=== PATIENT | female | born 1975 | race Caucasian/White ===

== ENCOUNTER 2020-11-02 21:20 | Emergency (ER) | payer OTHER, SELFPAY ==
[2020-11-02 21:22] VITALS: BP 140/92; PULSE 106; O2SAT 99
== END 2020-11-03 01:29 | disposition left against medical advice (07) ==
PROVIDERS: Emergency Provider Emergency Medicine
DX: R60.0 Localized edema (principal)

== ENCOUNTER 2020-12-17 22:47 | Emergency (ER) | payer OTHER, SELFPAY ==
[2020-12-17 22:49] VITALS: BMI 62.4
[2020-12-17 22:54] VITALS: BP 143/56; PULSE 110; RESP 18; TEMP 36.9; O2SAT 100
--- NOTE | 2020-12-17 23:34 | ED_ITS ---
HPI - General Adult General Chief complaint: General Medical Stated complaint: Edema,pain Time Seen by Provider: 12/17/20 23:17 History of Present Illness HPI narrative: Patient is a 45-year-old female presented today having leg swelling that is been ongoing for about a week. Patient claims that she is normally on Lasix. She is out of her medication. Her doctors would not refill her medication without knowing her kidney function. Patient denies any history of congestive heart failure. No history of liver problems. Patient is from home. No fever no chills no chest pain or shortness of breath no dizziness no nausea no vomitin. Patient also complaining of a rash over her right axilla that is draining pus. She had a history of abscesses in the past. Denies any chest pain. Related Data Previous Rx's Medication Instructions Recorded doxycycline hyclate 100 mg PO BID 7 Days #14 cap 12/18/20 furosemide [Lasix] 10 mg PO QAM #14 tab 12/18/20 Allergies Allergy/AdvReac Type Severity Reaction Status Date / Time naproxen [NAPROXEN] Allergy Intermediate HIVES Unverified 03/25/20 15:03 tramadol [From ULTRAM] Allergy Intermediate HIVES Unverified 03/25/20 15:03 Review of Systems Review of Systems: Constitutional: No Weight loss, No Fever, No Chills, No Night Sweats, No Fatigue, No Malaise ENT/Mouth: No Hearing loss, No Ear Pain, No Nasal Congestion, No Sinus Pain, No Hoarseness, No sore throat, No Rhinorrhea, No Swallowing Difficulty Eyes: No Eye Pain, No Swelling, No Redness, No Foreign Body, No Discharge, No Vision Changes Cardiovascular: No Chest Pain, No SOB, No Dyspnea on Exertion, No Orthopnea, positive Edema, No Palpitations Respiratory: No Cough, No Sputum, No Wheezing, No Smoke Exposure, No Dyspnea Gastrointestinal: No Nausea, No Vomiting, No Diarrhea, No Constipation, No abdominal Pain, No Hematochezia, No Melena Genitourinary: no irregular bleeding, No Dysuria, No Urinary Frequency, No Hematuria, No Urinary Incontinence, No Urgency, No Flank Pain, No Urinary Flow Changes, No Hesitancy Musculoskeletal: No joint pain, No Myalgias, No Joint Swelling Skin: No Skin Lesions, positive lesion over the right axilla Neuro: No Weakness, No Numbness, No Paresthesias, No Loss of Consciousness, No Dizziness, No Headache Psych: No Anxiety/Panic, No Depression, No SI/HI/AH/VH, No Social Issues, Heme/Lymph: No Bruising, No Bleeding,No Lymphadenopathy Endocrine: No Polyuria, No Polydipsia, No Temperature Intolerance [facility] Past Medical History Medical History (Updated 12/18/20 @ 01:13 by China Bragg MD) Diabetes Edema Social History Social History Patient Tobacco Use Status: Current everyday Tobacco user Smoked in Last 30 Days: Yes Use of substances other than those prescribed or required for medical reasons: Yes Substance Use Type: Former Substance User Advance Directives: No Patient : No Physical Exam Vital Signs: Vital Signs: Last Vital Signs Temp 98.5 F 12/17/20 22:54 Pulse 110 H 12/17/20 22:54 Resp 18 12/17/20 22:54 BP 143/56 H 12/17/20 22:54 Pulse Ox 100 12/17/20 22:54 Body Mass Index 62.4 Appearance: Alert. Oriented X3. No acute distress. Eyes: Pupils equal, round and reactive to light. ENT: Pharynx normal. Neck: Normal inspection. Neck supple. No lymph nodes noted. No crepitus CVS: Normal heart rate and rhythm. Pulses normal. Normal S1 and S2 Respiratory: No respiratory distress. Breath sounds normal. No Wheezing. No rales Abdomen: Soft and nontender. No rigidity. No distention. good BS x4 Skin: Skin warm and dry. Normal skin color. Normal skin turgor. Have positive area of induration over the right axilla. That is draining of purulent material. It is approximately 2 cm x 2 cm in size. It is not fluctuant to touch. Extremities: 2+ pitting edema to the lower extremity. Neurovascular intact to all extremities. No Lacerations. No Rash Neuro: Oriented X 3. No motor deficit. No sensory deficit. Moving all extermities. No slurred speech Medical Decision Making MDM Narrative Medical decision making narrative: Will get labs to check for congestive heart failure. Baseline EKG ordered. We will go ahead and give Lasix if labs okay. In addition patient has an abscess that is already draining. There is no fluctuance is palpable over the right axilla. Will start patient on dox ycycline. Close follow-up on an outpatient basis. Patient's BNP is normal. Electrolytes normal. Positive area of an old abscess is draining. Lots of pus was expressed. There is no fluctuance in that area over the axilla at this point. Will go ahead and give some antibiotic. Will give doxycycline. Currently in stable condition. Lab Data Result diagrams: 12/17/20 23:53 12/17/20 23:53 Labs: Lab Results 12/17/20 12/17/20 12/17/20 Range/Units 23:53 23:53 23:53 WBC 12.3 H (4.8-10.8) X10*3/uL RBC 4.73 (4.20-5.50) X10*6/uL Hgb 13.1 (12.0-16.0) g/dl Hct 40.6 (37-47) % MCV 85.8 (80-98) fL MCH 27.7 (27.0-33.0) pg MCHC 32.3 (31.0-35.0) g/dl RDW 16.2 H (11.0-16.0) % Plt Count 343 (160-400) X10*3/uL MPV 8.6 L (9.4-12.3) fL Immature Gran % (Auto) 0.7 H (0.0-0.4) % Neut % (Auto) 77.6 H (45-73) % Lymph % (Auto) 17.7 L (20-40) % [place] % (Auto) 3.1 (2-11) % Eos % (Auto) 0.7 (0-4) % Baso % (Auto) 0.2 (0-2) % Lymph # (Auto) 2.2 (1.2-4.9) X10*3/uL [place] # (Auto) 0.4 (0.1-1.2) X10*3/uL Eos # (Auto) 0.1 (0.0-0.4) X10*3/uL Baso # (Auto) 0.0 (0.0-0.2) X10*3/uL Abs Immat Gran (auto) 0.08 H (0.00-0.03) X10*3/uL Absolute Neuts (auto) 9.5 H (2.0-8.3) X10*3/uL Absolute Nucleated RBC 0.000 (0.0-0.012) X10*3/uL Nucleated RBC % (auto) 0.0 (0.0-0.2) /100WBC Sodium 137 (135-145) mmol/L Potassium 4.4 (3.3-5.1) mmol/L Chloride 103 (96-108) mmol/L Carbon Dioxide 25 (22-29) mmol/L Anion Gap 13 (12-20) BUN 11 (9-16) mg/dL Creatinine 0.71 (0.5-1.4) mg/dL Estim Creat Clear Calc 137.6 Estimated GFR > 60 Random Glucose 246 H (60-115) mg/dL Calcium 9.2 (8.4-10.2) mg/dL Total Bilirubin 0.2 (0.0-1.0) mg/dL Direct Bilirubin < 0.2 (0.0-0.5) mg/dL AST 18 (5-31) U/L ALT 30 (0-31) U/L Alkaline Phosphatase 138 H (39-117) U/L B-Natriuretic Peptide 12 (<100) pg/mL Total Protein 6.5 (6.5-8.0) g/dL Albumin 3.7 (3.5-5.0) g/dL Discharge Plan Discharge Clinical Impression: Abscess, Leg edema Patient Disposition: Home, Self-Care Instructions: Leg Edema (ED), Abscess (ED) Prescriptions: New furosemide [Lasix] 20 mg tablet 10 mg PO QAM Qty: 14 RF: 0 doxycycline hyclate 100 mg capsule 100 mg PO BID 7 Days Qty: 14 RF: 0 Referrals: Olena Dangelo MD [Primary Care Provider] - 2 days
--- NOTE | 2020-12-17 23:36 | ECG_ITS ---
Test Reason : MED CLEAR Blood Pressure : / mmHG Vent. Rate : 104 BPM Atrial Rate : 104 BPM P-R Int : 168 ms QRS Dur : 086 ms QT Int : 344 ms P-R-T Axes : 049 069 047 degrees QTc Int : 452 ms Sinus tachycardia Possible Left atrial enlargement Borderline ECG When compared with ECG of 16-NOV-2019 18:53, No significant change was found Referred By: China Bragg Electronically Signed By:DIANA DELCID MD
[2020-12-18 00:01] LABS: Basophils Percent Auto 0.2 % (0-2); Eosinophils Absolute Auto 0.1 X10*3/uL (0.0-0.4); Eosinophils Percent Auto 0.7 % (0-4); Hematocrit 40.6 % (37-47); Hemoglobin 13.1 g/dl (12.0-16.0); Imm Gran Abs Auto 0.08 X10*3/uL (0.00-0.03); Imm Gran Pct Auto 0.7 % (0.0-0.4); Lymphocytes Absolute Auto 2.2 X10*3/uL (1.2-4.9); Lymphocytes Percent Auto 17.7 % (20-40); MANUAL DIFF FLAG NO; Mean Corpuscular HGB Conc 32.3 g/dl (31.0-35.0); Mean Corpuscular Hemoglobin 27.7 pg (27.0-33.0); Mean Corpuscular Volume 85.8 fL (80-98); Mean Platelet Volume 8.6 fL (9.4-12.3); Monocytes Absolute Auto 0.4 X10*3/uL (0.1-1.2); Monocytes Percent Auto 3.1 % (2-11); Neutrophils Absolute Auto 9.5 X10*3/uL (2.0-8.3); Neutrophils Percent Auto 77.6 % (45-73); Platelet Count 343 X10*3/uL (160-400); Red Blood Count 4.73 X10*6/uL (4.20-5.50); Red Cell Distribution Width 16.2 % (11.0-16.0); White Blood Count 12.3 X10*3/uL (4.8-10.8)
[2020-12-18 00:30] LABS: Alanine Aminotransferase 30 U/L (0-31); Albumin Level 3.7 g/dL (3.5-5.0); Alkaline Phosphatase 138 U/L (39-117); Anion Gap 13 (12-20); Aspartate Amino Transferase 18 U/L (5-31); Bilirubin Direct < 0.2 mg/dL (0.0-0.5); Bilirubin Total 0.2 mg/dL (0.0-1.0); Blood Urea Nitrogen 11 mg/dL (9-16); Calcium 9.2 mg/dL (8.4-10.2); Carbon Dioxide 25 mmol/L (22-29); Chloride 103 mmol/L (96-108); Creatinine Clr Calc Pharmacy 137.6; Estimated Glomerular Filt Rate > 60; Glucose Random 246 mg/dL (60-115); Potassium 4.4 mmol/L (3.3-5.1); Sodium 137 mmol/L (135-145); Total Protein 6.5 g/dL (6.5-8.0)
[2020-12-18 01:02] LABS: B Type Natriuretic Peptide 12 pg/mL (<100)
--- NOTE | 2020-12-18 01:23 | ED.GENADULT ---
HPI - General Adult General Chief complaint: General Medical Stated complaint: Edema,pain Time Seen by Provider: 12/17/20 23:17 Related Data Previous Rx's Medication Instructions Recorded doxycycline hyclate 100 mg PO BID 7 Days #14 cap 12/18/20 furosemide [Lasix] 10 mg PO QAM #14 tab 12/18/20 Allergies Allergy/AdvReac Type Severity Reaction Status Date / Time naproxen [NAPROXEN] Allergy Intermediate HIVES Unverified 03/25/20 15:03 tramadol [From ULTRAM] Allergy Intermediate HIVES Unverified 03/25/20 15:03 [facility] Past Medical History Medical History (Updated 12/18/20 @ 01:13 by China Bragg MD) Diabetes Edema Social History Social History Patient Tobacco Use Status: Current everyday Tobacco user Smoked in Last 30 Days: Yes Use of substances other than those prescribed or required for medical reasons: Yes Substance Use Type: Former Substance User Advance Directives: No Patient : No Physical Exam Vital Signs: Vital Signs: Last Vital Signs Temp 98.5 F 12/17/20 22:54 Pulse 110 H 12/17/20 22:54 Resp 18 12/17/20 22:54 BP 143/56 H 12/17/20 22:54 Pulse Ox 100 12/17/20 22:54 Body Mass Index 62.4 Medical Decision Making Lab Data Result diagrams: 12/17/20 23:53 12/17/20 23:53 Labs: Lab Results 12/17/20 12/17/20 12/17/20 Range/Units 23:53 23:53 23:53 WBC 12.3 H (4.8-10.8) X10*3/uL RBC 4.73 (4.20-5.50) X10*6/uL Hgb 13.1 (12.0-16.0) g/dl Hct 40.6 (37-47) % MCV 85.8 (80-98) fL MCH 27.7 (27.0-33.0) pg MCHC 32.3 (31.0-35.0) g/dl RDW 16.2 H (11.0-16.0) % Plt Count 343 (160-400) X10*3/uL MPV 8.6 L (9.4-12.3) fL Immature Gran % (Auto) 0.7 H (0.0-0.4) % Neut % (Auto) 77.6 H (45-73) % Lymph % (Auto) 17.7 L (20-40) % [place] % (Auto) 3.1 (2-11) % Eos % (Auto) 0.7 (0-4) % Baso % (Auto) 0.2 (0-2) % Lymph # (Auto) 2.2 (1.2-4.9) X10*3/uL [place] # (Auto) 0.4 (0.1-1.2) X10*3/uL Eos # (Auto) 0.1 (0.0-0.4) X10*3/uL Baso # (Auto) 0.0 (0.0-0.2) X10*3/uL Abs Immat Gran (auto) 0.08 H (0.00-0.03) X10*3/uL Absolute Neuts (auto) 9.5 H (2.0-8.3) X10*3/uL Absolute Nucleated RBC 0.000 (0.0-0.012) X10*3/uL Nucleated RBC % (auto) 0.0 (0.0-0.2) /100WBC Sodium 137 (135-145) mmol/L Potassium 4.4 (3.3-5.1) mmol/L Chloride 103 (96-108) mmol/L Carbon Dioxide 25 (22-29) mmol/L Anion Gap 13 (12-20) BUN 11 (9-16) mg/dL Creatinine 0.71 (0.5-1.4) mg/dL Estim Creat Clear Calc 137.6 Estimated GFR > 60 Random Glucose 246 H (60-115) mg/dL Calcium 9.2 (8.4-10.2) mg/dL Total Bilirubin 0.2 (0.0-1.0) mg/dL Direct Bilirubin < 0.2 (0.0-0.5) mg/dL AST 18 (5-31) U/L ALT 30 (0-31) U/L Alkaline Phosphatase 138 H (39-117) U/L B-Natriuretic Peptide 12 (<100) pg/mL Total Protein 6.5 (6.5-8.0) g/dL Albumin 3.7 (3.5-5.0) g/dL ECG Data Interpretation: Sinus heart rate is 100 [place] QRS QT within normal limits. No ST segment elevation noted. No change from previous Discharge Plan Discharge Clinical Impression: Abscess, Leg edema Patient Disposition: Home, Self-Care Instructions: Leg Edema (ED), Abscess (ED) Prescriptions: New furosemide [Lasix] 20 mg tablet 10 mg PO QAM Qty: 14 RF: 0 doxycycline hyclate 100 mg capsule 100 mg PO BID 7 Days Qty: 14 RF: 0 Referrals: Olena Dangelo MD [Primary Care Provider] - 2 days
[2020-12-18 01:46] VITALS: BP 137/62; PULSE 92; RESP 16; TEMP 36.9; O2SAT 99
== END 2020-12-18 01:47 | disposition home or self-care (01) ==
PROVIDERS: Emergency Provider Emergency Medicine Emergency Medical Services; PCP Internal Medicine
DX: R60.0 Localized edema (principal); L02.91 Cutaneous abscess, unspecified; E11.9 Type 2 diabetes mellitus without complications; F17.210 Nicotine dependence, cigarettes, uncomplicated
CPT/HCPCS: 36415; 80048; 80076; 83880; 85025; 93005; 99283; 99284

== ENCOUNTER 2021-01-03 21:48 | Emergency (ER) | payer OTHER, SELFPAY ==
[2021-01-03 21:50] VITALS: BP 139/76; PULSE 111; O2SAT 98
[2021-01-03 21:54] VITALS: BP 159/82; PULSE 99; RESP 18; TEMP 36.8; O2SAT 95; BMI 58.7
[2021-01-03 22:36] LABS: MANUAL DIFF FLAG NO
[2021-01-03 22:38] LABS: Basophils Percent Auto 0.2 % (0-2); Eosinophils Absolute Auto 0.1 X10*3/uL (0.0-0.4); Eosinophils Percent Auto 0.9 % (0-4); Hematocrit 41.4 % (37-47); Hemoglobin 13.2 g/dl (12.0-16.0); Imm Gran Abs Auto 0.07 X10*3/uL (0.00-0.03); Imm Gran Pct Auto 0.6 % (0.0-0.4); Lymphocytes Absolute Auto 2.2 X10*3/uL (1.2-4.9); Mean Corpuscular HGB Conc 31.9 g/dl (31.0-35.0); Mean Corpuscular Hemoglobin 27.2 pg (27.0-33.0); Mean Corpuscular Volume 85.2 fL (80-98); Mean Platelet Volume 9.3 fL (9.4-12.3); Monocytes Absolute Auto 0.4 X10*3/uL (0.1-1.2); Monocytes Percent Auto 3.1 % (2-11); Neutrophils Absolute Auto 9.3 X10*3/uL (2.0-8.3); Neutrophils Percent Auto 77.2 % (45-73); Platelet Count 332 X10*3/uL (160-400); Red Blood Count 4.86 X10*6/uL (4.20-5.50); Red Cell Distribution Width 15.9 % (11.0-16.0); White Blood Count 12.1 X10*3/uL (4.8-10.8)
[2021-01-03 22:59] LABS: Anion Gap 12 (12-20); Blood Urea Nitrogen 9 mg/dL (9-16); Carbon Dioxide 25 mmol/L (22-29); Chloride 104 mmol/L (96-108); Creatinine Clr Calc Pharmacy 176.8; Estimated Glomerular Filt Rate > 60; Glucose Random 221 mg/dL (60-115); Sodium 137 mmol/L (135-145)
--- NOTE | 2021-01-03 23:53 | ED_ITS ---
HPI - General Adult General Chief complaint: General Medical Stated complaint: leg swelling Time Seen by Provider: 01/03/21 23:43 History of Present Illness HPI narrative: Patient is a 45-year-old female presents today with having bilateral lower extremity edema. no chest pain or diaphoresis. No fever no chills. Patient normally on Lasix 20 mg. Patient ran out of her pills the last 4 days. The edema has gotten worse. There is no fever no chills. No shortness of breath. No history of blood clots. Patient not on blood thinners. No history being on control pills. No history of trauma. Related Data Previous Rx's Medication Instructions Recorded doxycycline hyclate 100 mg PO BID 7 Days #14 cap 12/18/20 furosemide [Lasix] 10 mg PO QAM #14 tab 12/18/20 furosemide [Lasix] 20 mg PO QAM 14 Days #14 tab 01/04/21 Allergies Allergy/AdvReac Type Severity Reaction Status Date / Time naproxen [NAPROXEN] Allergy Intermediate HIVES Unverified 03/25/20 15:03 tramadol [From ULTRAM] Allergy Intermediate HIVES Unverified 03/25/20 15:03 Review of Systems Review of Systems: Constitutional: No Weight loss, No Fever, No Chills, No Night Sweats, No Fatigue, No Malaise ENT/Mouth: No Hearing loss, No Ear Pain, No Nasal Congestion, No Sinus Pain, No Hoarseness, No sore throat, No Rhinorrhea, No Swallowing Difficulty Eyes: No Eye Pain, No Swelling, No Redness, No Foreign Body, No Discharge, No Vision Changes Cardiovascular: No Chest Pain, No SOB, No Dyspnea on Exertion, No Orthopnea, No Edema, No Palpitations Respiratory: No Cough, No Sputum, No Wheezing, No Smoke Exposure, No Dyspnea Gastrointestinal: No Nausea, No Vomiting, No Diarrhea, No Constipation, No abdominal Pain, No Hematochezia, No Melena Genitourinary: no irregular bleeding, No Dysuria, No Urinary Frequency, No Hematuria, No Urinary Incontinence, No Urgency, No Flank Pain, No Urinary Flow Changes, No Hesitancy Musculoskeletal: Positive lower extremity swelling, getting worse Skin: No Skin Lesions, No rash Neuro: No Weakness, No Numbness, No Paresthesias, No Loss of Consciousness, No Dizziness, No Headache Psych: No Anxiety/Panic, No Depression, No SI/HI/AH/VH, No Social Issues, Heme/Lymph: No Bruising, No Bleeding,No Lymphadenopathy Endocrine: No Polyuria, No Polydipsia, No Temperature Intolerance [facility] Past Medical History Attestation statement: The following information was validated with the patient. Medical History Asthma Diabetes Edema Panic attacks Social History Social History Patient Tobacco Use Status: Current everyday Tobacco user Substance Use Type: Former Substance User Advance Directives: No Advance Directives Information Provided: No Patient : No Physical Exam Vital Signs: Vital Signs: Last Vital Signs Temp 98.3 F 01/03/21 21:54 Pulse 99 01/03/21 21:54 Resp 18 01/03/21 21:54 BP 159/82 H 01/03/21 21:54 Pulse Ox 95 01/03/21 21:54 Body Mass Index 58.7 Appearance: Alert. Oriented X3. No acute distress. Eyes: Pupils equal, round and reactive to light. ENT: Pharynx normal. Neck: Normal inspection. Neck supple. No lymph nodes noted. No crepitus CVS: Normal heart rate and rhythm. Pulses normal. Normal S1 and S2 Respiratory: No respiratory distress. Breath sounds normal. No Wheezing. No rales Abdomen: Soft and nontender. No rigidity. No distention. good BS x4 Skin: Skin warm and dry. Normal skin color. Normal skin turgor. Extremities: 2+ pitting edema bilaterally. Neurovascular intact to all extremities. No Lacerations. No Rash Neuro: Oriented X 3. No motor deficit. No sensory deficit. Moving all extermities. No slurred speech Medical Decision Making MDM Narrative Medical decision making narrative: Patient well-appearing no distress. Positive bilateral lower extremity edema. BNP was normal. No evidence for joe estive heart failure. Will start patient back on Lasix. Likely the cause of patient's leg swelling. In stable condition with discharge home. Lab Data Result diagrams: 01/03/21 22:11 01/03/21 22:11 Labs: Lab Results 01/03/21 01/03/21 01/03/21 Range/Units 22:11 22:11 22:11 WBC 12.1 H (4.8-10.8) X10*3/uL RBC 4.86 (4.20-5.50) X10*6/uL Hgb 13.2 (12.0-16.0) g/dl Hct 41.4 (37-47) % MCV 85.2 (80-98) fL MCH 27.2 (27.0-33.0) pg MCHC 31.9 (31.0-35.0) g/dl RDW 15.9 (11.0-16.0) % Plt Count 332 (160-400) X10*3/uL MPV 9.3 L (9.4-12.3) fL Immature Gran % (Auto) 0.6 H (0.0-0.4) % Neut % (Auto) 77.2 H (45-73) % Lymph % (Auto) 18.0 L (20-40) % [place] % (Auto) 3.1 (2-11) % Eos % (Auto) 0.9 (0-4) % Baso % (Auto) 0.2 (0-2) % Lymph # (Auto) 2.2 (1.2-4.9) X10*3/uL [place] # (Auto) 0.4 (0.1-1.2) X10*3/uL Eos # (Auto) 0.1 (0.0-0.4) X10*3/uL Baso # (Auto) 0.0 (0.0-0.2) X10*3/uL Abs Immat Gran (auto) 0.07 H (0.00-0.03) X10*3/uL Absolute Neuts (auto) 9.3 H (2.0-8.3) X10*3/uL Absolute Nucleated RBC 0.000 (0.0-0.012) X10*3/uL Nucleated RBC % (auto) 0.0 (0.0-0.2) /100WBC Sodium 137 (135-145) mmol/L Potassium 4.0 (3.3-5.1) mmol/L Chloride 104 (96-108) mmol/L Carbon Dioxide 25 (22-29) mmol/L Anion Gap 12 (12-20) BUN 9 (9-16) mg/dL Creatinine 0.68 (0.5-1.4) mg/dL Estim Creat Clear Calc 176.8 Estimated GFR > 60 Random Glucose 221 H (60-115) mg/dL Calcium 9.0 (8.4-10.2) mg/dL Troponin I High Sens < 3.5 (<3.5-17.0) ng/L B-Natriuretic Peptide 15 (<100) pg/mL Discharge Plan Discharge Clinical Impression: Edema Patient Disposition: Home, Self-Care Instructions: Edema (ED) Prescriptions: New furosemide [Lasix] 20 mg tablet 20 mg PO QAM 14 Days Qty: 14 RF: 0 No Action furosemide [Lasix] 20 mg tablet 10 mg PO QAM Qty: 14 RF: 0 doxycycline hyclate 100 mg capsule 100 mg PO BID 7 Days Qty: 14 RF: 0 Referrals: Physician,Unknown [Primary Care Provider] - 2 days
[2021-01-04 00:27] LABS: B Type Natriuretic Peptide 15 pg/mL (<100); Troponin-I High Sensitivity < 3.5 ng/L (<3.5-17.0)
[2021-01-04] MEDS: Furosemide 20 MG TABLET PO (00:50)
== END 2021-01-04 00:50 | disposition home or self-care (01) ==
PROVIDERS: Emergency Provider Emergency Medicine Emergency Medical Services
DX: R60.0 Localized edema (principal); E11.9 Type 2 diabetes mellitus without complications; J45.909 Unspecified asthma, uncomplicated
CPT/HCPCS: 36415; 80048; 83880; 84484; 85025; 99283

== ENCOUNTER 2021-02-18 12:54 | Emergency (ER) | payer OTHER, SELFPAY ==
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
[2021-02-18 13:22] VITALS: BP 111/65; PULSE 98; RESP 20; TEMP 36.4; O2SAT 95; BMI 52.0
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
[2021-02-18] MEDS: Lidocaine 4 % Patch ADH..PATCH 2 PATCH TRANSDERMA (14:31)
[2021-02-18] MEDS: Cyclobenzaprine HCl 10 MG TABLET PO (14:31)
[2021-02-18] MEDS: Butalb/Acetamin/Caff 50/325/40 TABLET 1 TAB PO (15:04)
== END 2021-02-18 15:10 | disposition home or self-care (01) ==
PROVIDERS: Emergency Provider Emergency Medicine; PCP Internal Medicine
DX: S39.012A Strain of muscle, fascia and tendon of lower back, initial encounter (principal); S09.90XA Unspecified injury of head, initial encounter; S16.1XXA Strain of muscle, fascia and tendon at neck level, initial encounter; S13.4XXA Sprain of ligaments of cervical spine, initial encounter; R51.9 Headache, unspecified; F17.200 Nicotine dependence, unspecified, uncomplicated; Z71.6 Tobacco abuse counseling; Z79.899 Other long term (current) drug therapy; V43.62XA Car passenger injured in collision with other type car in traffic accident, initial encounter; Y93.9 Activity, unspecified; Y92.410 Unspecified street and highway as the place of occurrence of the external cause; Y99.9 Unspecified external cause status
CPT/HCPCS: 70450; 72100; 72125; 99284

== ENCOUNTER 2021-04-19 09:14 | Emergency (ER) | payer OTHER, SELFPAY ==
[2021-04-19 09:24] VITALS: BP 150/78; PULSE 118; RESP 20; TEMP 37.8; O2SAT 97; BMI 50.8
[2021-04-19] MEDS: Buprenorphine/Naloxone 8/2 mg FILM 2 FILM SUBLINGUAL (10:53)
[2021-04-19] MEDS: cephALEXin 500 MG CAPSULE PO (10:53)
[2021-04-19] MEDS: Lidocaine HCl 1 % MPF 5 ML VIAL SUBCUT (10:53)
--- NOTE | 2021-04-19 11:31 | ED_ITS ---
HPI - Skin/Abscess/Foreign Bdy General Chief complaint: Wound/Laceration Stated complaint: multiple abscess Time Seen by Provider: 04/19/21 09:42 Source: patient Mode of arrival: ambulatory Limitations: no limitations History of Present Illness complaint: abscess/boil Onset (ago): day(s) (Few days worse today) Location: genitals (Left groin/labia) Severity: severe Severity scale (1-10): >10 Quality: aching Pain Consistency: constant Relieving factors: none Exacerbating factors: palpation and movement Context: none Associated symptoms: denies other symptoms Treatments prior to arrival: none and attempted to drain pus at home Related Data Previous Rx's Medication Instructions Recorded doxycycline hyclate 100 mg capsule 100 mg PO BID 7 Days #14 cap 12/18/20 furosemide 20 mg tablet (Lasix) 10 mg PO QAM #14 tab 12/18/20 furosemide 20 mg tablet (Lasix) 20 mg PO QAM 14 Days #14 tab 01/04/21 shxogxwhhv-zlfrohtllsype-paidgwzs 1 tab PO Q6H PRN #20 tab 02/18/21 50 mg-325 mg-40 mg tablet lidocaine 4 % topical patch 1 patch TOPICAL DAILY PRN #10 ea 02/18/21 methocarbamol 750 mg tablet 750 mg PO BID PRN #20 tab 02/18/21 acetaminophen 500 mg tablet 1,000 mg PO QID PRN #14 tab 04/19/21 (Tylenol Extra Strength) cephalexin 500 mg capsule 500 mg PO Q6H 10 Days #40 cap 04/19/21 doxycycline monohydrate 100 mg 100 mg PO BID 10 Days #20 cap 04/19/21 capsule Allergies Allergy/AdvReac Type Severity Reaction Status Date / Time naproxen [NAPROXEN] Allergy Intermediate HIVES Verified 04/19/21 09:28 tramadol [From ULTRAM] Allergy Intermediate HIVES Verified 04/19/21 09:28 Review of Systems Review of Systems: Constitutional : No Fever, No Chills, Cardiovascular : No Chest Pain, No SOB Respiratory : No Dyspnea Gastrointestinal : No abdominal pain Musculoskeletal : No Joint Swelling Skin : positive abscess, no skin laceration, No Foreign bodies, No rash, No surrounding erythema Neuro : No Weakness, No Numbness/tingling Psych : No SI/HI/thoughts of self injury Yes all other systems are reviewed and are negative [facility] Past Medical History Attestation statement: The following information was validated with the patient. Medical History Asthma Diabetes Edema Panic attacks Social History Social History Patient Tobacco Use Status: Current everyday Tobacco user Substance Use Type: Former Substance User Advance Directives: No Advance Directives Information Provided: Yes Physical Exam Vital Signs: Vital Signs: Last Vital Signs Temp 100.0 F 04/19/21 09:24 Pulse 118 H 04/19/21 09:24 Resp 20 04/19/21 09:24 BP 150/78 H 04/19/21 09:24 Pulse Ox 97 04/19/21 09:24 Body Mass Index 50.8 vital signs have been reviewed as normal and appeared to be correct. Blood pressure normal Heart rate normal. Respiration rate normal. Temperature normal. Oxygen saturation normal. Appearance: Alert. Oriented X3. No acute distress. Head: Normal external exam. Normocephalic. Atraumatic. Eyes: PERRLA. EOMI. Conjunctiva and sclera normal. Eyelids normal. ENT: Pharynx normal. Uvula midline. Moist mucous membranes. Neck: Normal inspection. Neck supple. FROM. CVS: Normal heart rate and rhythm. Respiratory: No respiratory distress. Painless inspiration. Skin: To left groin/labia patient has a moderate size fluctuant abscess no purulent drainage noted or foreign bodies. No induration noted. The rest of the Skin is warm and dry. Normal skin color. Normal skin turgor. No additional rashes/lesions/lacerations noted. Extremities: No lower extremity edema. Extremities exhibit normal range of motion. Extremities nontender. Neuro: Oriented X 3. No motor deficit. No sensory deficit. Reflexes normal. Normal steady gait. No focal neuro deficits noted. Vascular: + radial pulses/+ 2 distal pedal pulses/+2 dorsalis pedis b/l. Normal cap refill. No cyanosis noted to upper extremity nails and lower extremity toes nails. Course Course Course Narrative: Patient now status post I&D of left labia abscess. Patient tolerated procedure well. No complications. I also gave the patient her Suboxone dose due to she missed her appointment this morning due to she was here. Also started her on doxycycline and Keflex along with instructions return if any new or worsening symptoms follow-up with primary care provider. Patient understands agrees with this plan. MDM - Skin/Abscess/Foreign Bdy Medical Records Attestation: I reviewed the patient's medical records. Procedures Abscess I/D Site: other (Labia) Side (if applicable): left Local Anesthetic: lidocaine 1% Amount of anesthesia used (mL): 5 Technique: incised with blade Amount of fluid expressed (mL): 5 Sent for culture/gram staining?: No Irrigation: Yes Packing used?: none Complications: other (No complications) Discharge Plan Discharge Clinical Impression: Abscess Patient Disposition: Home, Self-Care Instructions: Abscess Incision and Drainage (DC) Prescriptions: New acetaminophen [Tylenol Extra Strength] 500 mg tablet 1,000 mg PO QID PRN (Reason: fever or pain) Qty: 14 RF: 0 doxycycline monohydrate 100 mg capsule 100 mg PO BID 10 Days Qty: 20 RF: 0 cephalexin 500 mg capsule 500 mg PO Q6H 10 Days Qty: 40 RF: 0 No Action furosemide [Lasix] 20 mg tablet 10 mg PO QAM Qty: 14 RF: 0 doxycycline hyclate 100 mg capsule 100 mg PO BID 7 Days Qty: 14 RF: 0 furosemide [Lasix] 20 mg tablet 20 mg PO QAM 14 Days Qty: 14 RF: 0 lidocaine 4 % adhesive patch,medicated 1 patch topical DAILY PRN (Reason: pain) Qty: 10 RF: 0 rhpkiwdgtk-qqeoxtotqophl-xcem 50-325-40 mg tablet 1 tab PO Q6H PRN (Reason: pain) Qty: 20 RF: 0 methocarbamol 750 mg tablet 750 mg PO BID PRN (Reason: muscle spasm) Qty: 20 RF: 0 Referrals: Olena Dangelo MD [Primary Care Provider] - 2 days
== END 2021-04-19 11:47 | disposition home or self-care (01) ==
PROVIDERS: Emergency Provider Emergency Medicine; PCP Internal Medicine
DX: N76.4 Abscess of vulva (principal); F17.210 Nicotine dependence, cigarettes, uncomplicated; Z71.6 Tobacco abuse counseling; Z79.899 Other long term (current) drug therapy
CPT/HCPCS: 56405; 99283; 99284

== ENCOUNTER 2021-07-20 22:45 | Emergency (ER) | payer OTHER, SELFPAY ==
[2021-07-20 22:56] VITALS: BP 120/80; BP 141/80; PULSE 110; PULSE 99; RESP 18; TEMP 36; O2SAT 94; O2SAT 96; BMI 49.9
== END 2021-07-20 23:46 | disposition left against medical advice (07) ==
PROVIDERS: Emergency Provider Emergency Medicine; PCP Family Medicine
DX: R33.9 Retention of urine, unspecified (principal); R10.9 Unspecified abdominal pain; R60.0 Localized edema; E11.9 Type 2 diabetes mellitus without complications
CPT/HCPCS: 99281; 99282

== ENCOUNTER 2022-02-22 17:27 | Emergency (ER) | payer OTHER, SELFPAY ==
[2022-02-22 17:43] VITALS: BP 122/75; PULSE 93; O2SAT 95
[2022-02-22 18:00] VITALS: BP 145/90; PULSE 88; RESP 20; TEMP 36.7; O2SAT 98; BMI 45.7
== END 2022-02-22 19:15 | disposition left against medical advice (07) ==
PROVIDERS: Emergency Provider Emergency Medicine
DX: R51.9 Headache, unspecified (principal)
CPT/HCPCS: 99281

== ENCOUNTER 2022-03-06 15:53 | Emergency (ER) | payer OTHER, SELFPAY ==
--- NOTE | ~2022-03-06 | XR_ITS ---
EXAMINATION: PORTABLE CHEST 1 VIEW CLINICAL INFORMATION: Chest pain. COMPARISON: 11/16/2019. TECHNIQUE: Portable frontal view of the chest was obtained. FINDINGS: The lungs are hypoexpanded with basilar markings more likely due to atelectasis in this setting. Tiny effusions cannot be excluded. No overt edema or pneumothorax. Cardiac and mediastinal silhouettes are within normal limits for size for this technique. No acute bony abnormality seen. XR/XR chest 1V IMPRESSION: Hypoexpanded with basilar markings more likely due to atelectasis
--- NOTE | 2022-03-06 16:23 | ED.CHESTPAIN ---
HPI - Chest Pain General Chief Complaint: Chest Pain Stated Complaint: chest pain Source: patient and EMS Mode of arrival: EMS Limitations: no limitations History of Present Illness HPI narrative: 46-year-old female presents via EMS for chest pain that radiates from her back to her right shoulder. Was given 324 mg aspirin on transit. Patient states the pain started this morning, it woke her up. Worse on inspiration, and when she moves her arms. She does have some shortness of breath, and bilateral lower extremity edema per baseline and takes Lasix daily. She denies pain on inspiration, abdominal distention, dysuria, hematuria. MD complaint: chest pain Onset (ago): day(s) (1) Timing of current episode: constant Prior episodes: Yes Onset: during rest Pain location: substernal Pain radiation: right shoulder Severity: moderate Pain scale (0-10): 7 Quality: sharp Relieving factors: nothing Exacerbating factors: exertion, inspiration and palpation Associated symptoms: dyspnea Treatment prior to arrival: aspirin Risk Factors Coronary artery disease risk factors: diabetes and smoking history Related Data On Oral Contraceptives: No Previous Rx's Medication Instructions Recorded doxycycline hyclate 100 mg capsule 100 mg PO BID cough 7 days #14 caps 12/18/20 furosemide 20 mg tablet (Lasix) 10 mg PO QAM #14 tabs 12/18/20 furosemide 20 mg tablet (Lasix) 20 mg PO QAM edema 2 weeks #14 tabs 01/04/21 [id number]-tpbsegnfljiun-[id number] 1 tab PO Q6H PRN pain #20 tabs 02/18/21 50 mg-325 mg-40 mg tablet lidocaine 4 % topical patch 1 patch topical DAILY PRN pain #10 02/18/21 ea methocarbamol 750 mg tablet 750 mg PO BID PRN muscle spasm #20 02/18/21 tabs acetaminophen 500 mg tablet 1,000 mg PO QID PRN fever or pain 04/19/21 (Tylenol Extra Strength) #14 tabs cephalexin 500 mg capsule 500 mg PO Q6H 10 days #40 caps 04/19/21 doxycycline monohydrate 100 mg 100 mg PO BID 10 days #20 caps 04/19/21 capsule doxycycline monohydrate 100 mg 100 mg PO BID 10 days #20 caps 03/06/22 capsule Allergies Allergy/AdvReac Type Severity Reaction Status Date / Time naproxen [NAPROXEN] Allergy Intermediate HIVES Verified 04/19/21 09:28 tramadol [From ULTRAM] Allergy Intermediate HIVES Verified 04/19/21 09:28 Review of Systems Review of Systems: Constitutional: No Fever, No Chills ENT/Mouth: No Ear Pain, No Hoarseness, No sore throat Eyes: No Eye Pain, No Swelling, No Redness, No Foreign Body Cardiovascular: No Chest Pain, No SOB Respiratory: No Cough, No Dyspnea Gastrointestinal: No Nausea, No Vomiting, No Diarrhea, No abdominal Pain Genitourinary: No Dysuria, No Hematuria Musculoskeletal: positive chest wall and back pain, No Myalgias, No Joint Swelling Skin: No Skin lacerations, No rash Neuro: No Weakness, No Numbness, No Paresthesias, No Loss of Consciousness, No Dizziness, No Headache Psych: No Anxiety/Panic, No Depression Heme/Lymph: no easy bruising, no Lymphadenopathy Endocrine: No Polyuria, No Polydipsia Yes all other systems are reviewed and are negative [facility] Past Medical History Attestation statement: The following information was validated with the patient. Source: old records reviewed Medical History Asthma Diabetes Edema Panic attacks Social History Social History Patient Tobacco Use Status: Current everyday Tobacco user Use of substances other than those prescribed or required for medical reasons: No Substance Use Type: Former Substance User Advance Directives: No Advance Directives Information Provided: No Physical Exam Vital Signs: Vital Signs: Last Vital Signs Temp 98.4 F 03/06/22 18:00 Pulse 111 H 03/06/22 18:00 Resp 20 03/06/22 18:00 BP 105/60 03/06/22 18:00 Pulse Ox 95 03/06/22 18:00 O2 Del Method 03/06/22 18:00 BMI result Body Mass Index 45.4 Appearance: Alert. Oriented X3. Moderate distress. Eyes: Pupils equal, round and reactive to light. Sclera nonicteric. ENT: Pharynx normal. Moist mucous membranes. Neck: Normal inspection. Neck supple. CVS: Tachycardic heart rate and rhythm. Pulses normal. Respiratory: No respiratory distress. Breath sounds normal. Abdomen: Soft and nontender. Obese. Skin: Skin warm and dry. Normal skin color. Normal skin turgor. Extremities: +2 pitting lower extremity edema. Moves all extremities against resistance. Neuro: No motor deficit. No sensory deficit. Cranial nerves 2-12 intact. Course Course Course Narrative: 46-year-old female presents via EMS for chest pain that started this morning, is substernal radiates to her right shoulder. Was given aspirin 324 on transit. Stated the chest pain started this morning, woke her up, is not associated with diaphoresis, shortness breath, weakness or dizziness. She does take Suboxone and Adderall. Heart rate elevated however she did take few hours prior arrival EKG shows sinus tachycardia. 17:20 serum glucose 371, order for ketones and L of fluid at this time. White count is 14.3. 19:27 patient states to feel better, states that she is anxious and wants to leave. plan of care is to discharge patient to home, she would like to be treated for bronchitis with doxycycline. MDM - Chest Pain Differential Diagnosis Differential diagnosis: Likely fracture of rib, pneumothorax, unstable angina pectoris, atypical chest pain, st elevation myocardial infarction, costochondritis, chest pain and biliary colic Medical Records Data Attestation: I reviewed the patient's medical records. Lab Data Attestation: I reviewed the patient's lab results. Result diagrams: 03/06/22 16:54 03/06/22 16:54 Labs: Lab Results 03/06/22 03/06/22 03/06/22 Range/Units 16:36 16:54 16:54 WBC 14.3 H (4.8-10.8) X10*3/uL RBC 5.05 (4.20-5.50) X10*6/uL Hgb 13.7 (12.0-16.0) g/dl Hct 41.6 (37.0-47.0) % MCV 82.4 (80.0-98.0) fL MCH 27.1 (27.0-33.0) pg MCHC 32.9 (31.0-35.0) g/dl RDW 15.7 (11.0-16.0) % Plt Count 305 (160-400) X10*3/uL MPV 9.2 L (9.4-12.3) fL Immature Gran % (Auto) 0.6 H (0.0-0.4) % Neut % (Auto) 83.4 H (45-73) % Lymph % (Auto) 12.5 L (20-40) % Calvert % (Auto) 3.2 (2-11) % Eos % (Auto) 0.2 (0-4) % Baso % (Auto) 0.1 (0-2) % Lymph # (Auto) 1.8 (1.2-4.9) X10*3/uL Calvert # (Auto) 0.5 (0.1-1.2) X10*3/uL Eos # (Auto) 0.0 (0.0-0.4) X10*3/uL Baso # (Auto) 0.0 (0.0-0.2) X10*3/uL Abs Immat Gran (auto) 0.08 H (0.00-0.03) X10*3/uL Absolute Neuts (auto) 11.9 H (2.0-8.3) x10*3/uL Absolute Nucleated RBC 0.000 (0.0-0.012) X10*3/uL Nucleated RBC % (auto) 0.0 (0.0-0.2) /100WBC PT 11.6 (10.0-13.1) SEC INR 1.0 (0.9-1.1) APTT 32.2 (26.0-36.4) SEC VBG pH (7.32-7.43) VBG pCO2 mmHg VBG pO2 mmHg VBG HCO3 (22-26) mmol/L VBG O2 Saturation % VBG Base Excess mmol/L Sodium (135-145) mmol/L Potassium (3.3-5.1) mmol/L Chloride (96-108) mmol/L Carbon Dioxide (22-29) mmol/L Anion Gap (12-20) BUN (9-16) mg/dL Creatinine (0.5-1.4) mg/dL Estim Creat Clear Calc Estimated GFR POC Glucose 371 H* (60-115) mg/dL Random Glucose (60-115) mg/dL Lactic Acid (0.5-2.0) mmol/L Calcium (8.4-10.2) mg/dL Magnesium (1.6-2.6) mg/dL Total Bilirubin (0.0-1.0) mg/dL Direct Bilirubin (0.0-0.5) mg/dL AST (5-31) U/L ALT (0-31) U/L Alkaline Phosphatase (39-117) U/L Troponin I High Sens (<3.5-17.0) ng/L B-Natriuretic Peptide (<100) pg/mL Total Protein (6.5-8.0) g/dL Albumin (3.5-5.0) g/dL Lipase (8-78) U/L Urine Color Urine Appearance Urine pH (5.0-8.0) Ur Specific Marion (1.005-1.025) Urine Protein (Neg-Trace) mg/dL Urine Glucose (UA) (Negative) mg/dL Urine Ketones (Negative) mg/dL Urine Blood (Negative) Urine Nitrite (Negative) Ur Leukocyte Esterase (Negative) Urine RBC (0-2) /HPF Urine WBC (0-5) /HPF Ur Squamous Epith Cells (0-2) /HPF Urine Bacteria (None Seen) Hyaline Casts (0-2) /LPF Acetone, Qual (Negative) COVID-19 ([place]) (Negative) COVID-19 Clin Com 03/06/22 03/06/22 03/06/22 Range/Units 16:54 16:54 16:54 WBC (4.8-10.8) X10*3/uL RBC (4.20-5.50) X10*6/uL Hgb (12.0-16.0) g/dl Hct (37.0-47.0) % MCV (80.0-98.0) fL MCH (27.0-33.0) pg MCHC (31.0-35.0) g/dl RDW (11.0-16.0) % Plt Count (160-400) X10*3/uL MPV (9.4-12.3) fL Immature Gran % (Auto) (0.0-0.4) % Neut % (Auto) (45-73) % Lymph % (Auto) (20-40) % Calvert % (Auto) (2-11) % Eos % (Auto) (0-4) % Baso % (Auto) (0-2) % Lymph # (Auto) (1.2-4.9) X10*3/uL [place]vert # (Auto) (0.1-1.2) X10*3/uL Eos # (Auto) (0.0-0.4) X10*3/uL Baso # (Auto) (0.0-0.2) X10*3/uL Abs Immat Gran (auto) (0.00-0.03) X10*3/uL Absolute Neuts (auto) (2.0-8.3) x10*3/uL Absolute Nucleated RBC (0.0-0.012) X10*3/uL Nucleated RBC % (auto) (0.0-0.2) /100WBC PT (10.0-13.1) SEC INR (0.9-1.1) APTT (26.0-36.4) SEC VBG pH (7.32-7.43) VBG pCO2 mmHg VBG pO2 mmHg VBG HCO3 (22-26) mmol/L VBG O2 Saturation % VBG Base Excess mmol/L Sodium 132 L (135-145) mmol/L Potassium 4.0 (3.3-5.1) mmol/L Chloride 96 (96-108) mmol/L Carbon Dioxide 26 (22-29) mmol/L Anion Gap 14 (12-20) BUN 10 (9-16) mg/dL Creatinine 0.83 (0.5-1.4) mg/dL Estim Creat Clear Calc 122.2 Estimated GFR > 60 POC Glucose (60-115) mg/dL Random Glucose 397 H* (60-115) mg/dL Lactic Acid (0.5-2.0) mmol/L Calcium 8.8 (8.4-10.2) mg/dL Magnesium 2.1 (1.6-2.6) mg/dL Total Bilirubin 0.4 (0.0-1.0) mg/dL Direct Bilirubin 0.2 (0.0-0.5) mg/dL AST 13 (5-31) U/L ALT 16 (0-31) U/L Alkaline Phosphatase 130 H (39-117) U/L Troponin I High Sens < 3.5 (<3.5-17.0) ng/L B-Natriuretic Peptide 17 (<100) pg/mL Total Protein 6.4 L (6.5-8.0) g/dL Albumin 3.4 L (3.5-5.0) g/dL Lipase 14 (8-78) U/L Urine Color Urine Appearance Urine pH (5.0-8.0) Ur Specific Marion (1.005-1.025) Urine Protein (Neg-Trace) mg/dL Urine Glucose (UA) (Negative) mg/dL Urine Ketones (Negative) mg/dL Urine Blood (Negative) Urine Nitrite (Negative) Ur Leukocyte Esterase (Negative) Urine RBC (0-2) /HPF Urine WBC (0-5) /HPF Ur Squamous Epith Cells (0-2) /HPF Urine Bacteria (None Seen) Hyaline Casts (0-2) /LPF Acetone, Qual (Negative) COVID-19 ([place]) Negative (Negative) COVID-19 Clin Com See Note 03/06/22 03/06/22 03/06/22 Range/Units 18:19 18:19 18:19 WBC (4.8-10.8) X10*3/uL RBC (4.20-5.50) X10*6/uL Hgb (12.0-16.0) g/dl Hct (37.0-47.0) % MCV (80.0-98.0) fL MCH (27.0-33.0) pg MCHC (31.0-35.0) g/dl RDW (11.0-16.0) % Plt Count (160-400) X10*3/uL MPV (9.4-12.3) fL Immature Gran % (Auto) (0.0-0.4) % Neut % (Auto) (45-73) % Lymph % (Auto) (20-40) % Calvert % (Auto) (2-11) % Eos % (Auto) (0-4) % Baso % (Auto) (0-2) % Lymph # (Auto) (1.2-4.9) X10*3/uL [place]vert # (Auto) (0.1-1.2) X10*3/uL Eos # (Auto) (0.0-0.4) X10*3/uL Baso # (Auto) (0.0-0.2) X10*3/uL Abs Immat Gran (auto) (0.00-0.03) X10*3/uL Absolute Neuts (auto) (2.0-8.3) x10*3/uL Absolute Nucleated RBC (0.0-0.012) X10*3/uL Nucleated RBC % (auto) (0.0-0.2) /100WBC PT (10.0-13.1) SEC INR (0.9-1.1) APTT (26.0-36.4) SEC VBG pH (7.32-7.43) VBG pCO2 mmHg VBG pO2 mmHg VBG HCO3 (22-26) mmol/L VBG O2 Saturation % VBG Base Excess mmol/L Sodium (135-145) mmol/L Potassium (3.3-5.1) mmol/L Chloride (96-108) mmol/L Carbon Dioxide (22-29) mmol/L Anion Gap (12-20) BUN (9-16) mg/dL Creatinine (0.5-1.4) mg/dL Estim Creat Clear Calc Estimated GFR POC Glucose (60-115) mg/dL Random Glucose (60-115) mg/dL Lactic Acid 1.6 (0.5-2.0) mmol/L Calcium (8.4-10.2) mg/dL Magnesium (1.6-2.6) mg/dL Total Bilirubin (0.0-1.0) mg/dL Direct Bilirubin (0.0-0.5) mg/dL AST (5-31) U/L ALT (0-31) U/L Alkaline Phosphatase (39-117) U/L Troponin I High Sens (<3.5-17.0) ng/L B-Natriuretic Peptide (<100) pg/mL Total Protein (6.5-8.0) g/dL Albumin (3.5-5.0) g/dL Lipase (8-78) U/L Urine Color Yellow Urine Appearance Clear Urine pH 5.5 (5.0-8.0) Ur Specific Marion >= 1.030 H (1.005-1.025) Urine Protein Negative (Neg-Trace) mg/dL Urine Glucose (UA) >=1000 H (Negative) mg/dL Urine Ketones Negative (Negative) mg/dL Urine Blood Trace H (Negative) Urine Nitrite Negative (Negative) Ur Leukocyte Esterase Negative (Negative) Urine RBC 0-2 (0-2) /HPF Urine WBC 0-5 (0-5) /HPF Ur Squamous Epith Cells 0-2 (0-2) /HPF Urine Bacteria None Seen (None Seen) Hyaline Casts 0-2 (0-2) /LPF Acetone, Qual Negative (Negative) COVID-19 ([place]) (Negative) COVID-19 Clin Com 03/06/22 Range/Units 18:27 WBC (4.8-10.8) X10*3/uL RBC (4.20-5.50) X10*6/uL Hgb (12.0-16.0) g/dl Hct (37.0-47.0) % MCV (80.0-98.0) fL MCH (27.0-33.0) pg MCHC (31.0-35.0) g/dl RDW (11.0-16.0) % Plt Count (160-400) X10*3/uL MPV (9.4-12.3) fL Immature Gran % (Auto) (0.0-0.4) % Neut % (Auto) (45-73) % Lymph % (Auto) (20-40) % Calvert % (Auto) (2-11) % Eos % (Auto) (0-4) % Baso % (Auto) (0-2) % Lymph # (Auto) (1.2-4.9) X10*3/uL [place] # (Auto) (0.1-1.2) X10*3/uL Eos # (Auto) (0.0-0.4) X10*3/uL Baso # (Auto) (0.0-0.2) X10*3/uL Abs Immat Gran (auto) (0.00-0.03) X10*3/uL Absolute Neuts (auto) (2.0-8.3) x10*3/uL Absolute Nucleated RBC (0.0-0.012) X10*3/uL Nucleated RBC % (auto) (0.0-0.2) /100WBC PT (10.0-13.1) SEC INR (0.9-1.1) APTT (26.0-36.4) SEC VBG pH 7.45 H (7.32-7.43) VBG pCO2 35 mmHg VBG pO2 223 mmHg VBG HCO3 25 (22-26) mmol/L VBG O2 Saturation 99.0 % VBG Base Excess 1.9 mmol/L Sodium (135-145) mmol/L Potassium (3.3-5.1) mmol/L Chloride (96-108) mmol/L Carbon Dioxide (22-29) mmol/L Anion Gap (12-20) BUN (9-16) mg/dL Creatinine (0.5-1.4) mg/dL Estim Creat Clear Calc Estimated GFR POC Glucose (60-115) mg/dL Random Glucose (60-115) mg/dL Lactic Acid (0.5-2.0) mmol/L Calcium (8.4-10.2) mg/dL Magnesium (1.6-2.6) mg/dL Total Bilirubin (0.0-1.0) mg/dL Direct Bilirubin (0.0-0.5) mg/dL AST (5-31) U/L ALT (0-31) U/L Alkaline Phosphatase (39-117) U/L Troponin I High Sens (<3.5-17.0) ng/L B-Natriuretic Peptide (<100) pg/mL Total Protein (6.5-8.0) g/dL Albumin (3.5-5.0) g/dL Lipase (8-78) U/L Urine Color Urine Appearance Urine pH (5.0-8.0) Ur Specific [place] (1.005-1.025) Urine Protein (Neg-Trace) mg/dL Urine Glucose (UA) (Negative) mg/dL Urine Ketones (Negative) mg/dL Urine Blood (Negative) Urine Nitrite (Negative) Ur Leukocyte Esterase (Negative) Urine RBC (0-2) /HPF Urine WBC (0-5) /HPF Ur Squamous Epith Cells (0-2) /HPF Urine Bacteria (None Seen) Hyaline Casts (0-2) /LPF Acetone, Qual (Negative) COVID-19 ([place]) (Negative) COVID-19 Clin Com Imaging Data Chest x-ray: Attestation: I personally reviewed and interpreted this imaging study as follows: Radiologist's impression: EXAMINATION: PORTABLE CHEST 1 VIEW CLINICAL INFORMATION: Chest pain. COMPARISON: 11/16/2019. TECHNIQUE: Portable frontal view of the chest was obtained. FINDINGS: The lungs are hypoexpanded with basilar markings more likely due to atelectasis in this setting. Tiny effusions cannot be excluded. No overt edema or pneumothorax. Cardiac and mediastinal silhouettes are within normal limits for size for this technique. No acute bony abnormality seen. XR/XR chest 1V IMPRESSION: Hypoexpanded with basilar markings more likely due to atelectasis ? ECG Data ECG #1: Attestation: I personally reviewed and interpreted this ECG as follows: ECG interpretation date: 03/06/22 ECG interpretation time: 16:23 Interpretation: Vent. rate 111 BPM DC interval 154 ms QRS duration 84 ms QT/QTc 318/432 ms P-R-T axes 52 85 41 Sinus tachycardia Cannot rule out Anterior infarct , age undetermined Abnormal ECG When compared with ECG of 18-DEC-2020 00:06, No significant change was found Scores Heart Score History: -0- slightly suspicious ECG: -0- normal Age: -0- < or = 45 Risk factory: -1- 1 or 2 risk factors Troponin: -0- < or = normal limit Score: 1 Risk: 1.7% Discharge Plan Discharge Clinical Impression: Bronchitis Patient Disposition: Home, Self-Care Instructions: Acute Bronchitis (ED) Additional Instructions: You were evaluated for chest pain. X-rays indicate hypoexpansion with basilar markings most likely due to atelectasis. I will treat you for bronchitis at this time with doxycycline. Please take doxycycline 100 mg twice a day for the next 10 days. Doxycycline has a photosensitive reaction, please wear hat, sunscreen and long sleeves while in the sun to prevent skin reaction. Follow-up with primary care physician tomorrow as scheduled. Thank you for choosing this emergency department for evaluation. Please follow-up with primary care physician as needed. Return to the emergency department for any new, concerning, or worsening symptoms. Prescriptions: New doxycycline monohydrate 100 mg capsule 100 mg PO BID 10 Days Qty: 20 0RF No Action furosemide [Lasix] 20 mg tablet 10 mg PO QAM Qty: 14 0RF doxycycline hyclate 100 mg capsule 100 mg PO BID 7 Days Qty: 14 0RF furosemide [Lasix] 20 mg tablet 20 mg PO QAM 14 Days Qty: 14 0RF lidocaine 4 % adhesive patch,medicated 1 patch topical DAILY PRN (Reason: pain) Qty: 10 0RF Rx Instructions: may leave on for up to 12 hrs [id number]-xvhijjrvaewrn-ftvt 50-325-40 mg tablet 1 tab PO Q6H PRN (Reason: pain) Qty: 20 0RF methocarbamol 750 mg tablet 750 mg PO BID PRN (Reason: muscle spasm) Qty: 20 0RF acetaminophen [Tylenol Extra Strength] 500 mg tablet 1,000 mg PO QID PRN (Reason: fever or pain) Qty: 14 0RF doxycycline monohydrate 100 mg capsule 100 mg PO BID 10 Days Qty: 20 0RF cephalexin 500 mg capsule 500 mg PO Q6H 10 Days Qty: 40 0RF Interventions: ED Discharge Assessment Last Done: 03/06/22 19:46 Discharge Date/Time: 03/06/22 19:48
--- NOTE | 2022-03-06 16:28 | ECG_ITS ---
Test Reason : cHEST pAIN Blood Pressure : / mmHG Vent. Rate : 111 BPM Atrial Rate : 111 BPM P-R Int : 154 ms QRS Dur : 084 ms QT Int : 318 ms P-R-T Axes : 052 085 041 degrees QTc Int : 432 ms Sinus tachycardia Cannot rule out Anterior infarct , age undetermined Abnormal ECG When compared with ECG of 18-DEC-2020 00:06, T wave amplitude has decreased in Anterior leads Referred By: Krupa Vann Electronically Signed By:DIANNA GONGORA
[2022-03-06 16:42] LABS: Glucose, Whole Blood 371 mg/dL (60-115)
[2022-03-06 16:51] VITALS: BP 102/60; BP 102/67; PULSE 108; PULSE 113; RESP 22; TEMP 37.2; O2SAT 92; BMI 45.4
[2022-03-06 16:57] VITALS: BP 102/60; PULSE 107; RESP 19; TEMP 37.2; O2SAT 92
[2022-03-06 16:59] LABS: MANUAL DIFF FLAG NO
[2022-03-06 17:05] LABS: Basophils Percent Auto 0.1 % (0-2); Eosinophils Percent Auto 0.2 % (0-4); Hematocrit 41.6 % (37.0-47.0); Hemoglobin 13.7 g/dl (12.0-16.0); Imm Gran Abs Auto 0.08 X10*3/uL (0.00-0.03); Imm Gran Pct Auto 0.6 % (0.0-0.4); Lymphocytes Absolute Auto 1.8 X10*3/uL (1.2-4.9); Lymphocytes Percent Auto 12.5 % (20-40); Mean Corpuscular HGB Conc 32.9 g/dl (31.0-35.0); Mean Corpuscular Hemoglobin 27.1 pg (27.0-33.0); Mean Corpuscular Volume 82.4 fL (80.0-98.0); Mean Platelet Volume 9.2 fL (9.4-12.3); Monocytes Absolute Auto 0.5 X10*3/uL (0.1-1.2); Monocytes Percent Auto 3.2 % (2-11); Neutrophils Absolute Auto 11.9 x10*3/uL (2.0-8.3); Neutrophils Percent Auto 83.4 % (45-73); Platelet Count 305 X10*3/uL (160-400); Red Blood Count 5.05 X10*6/uL (4.20-5.50); Red Cell Distribution Width 15.7 % (11.0-16.0); White Blood Count 14.3 X10*3/uL (4.8-10.8)
[2022-03-06] MEDS: LORazepam 1 MG TABLET 2 MG PO (17:09)
[2022-03-06 17:15] LABS: Prothrombin Time 11.6 SEC (10.0-13.1)
[2022-03-06 17:17] LABS: COVID-19 Test Negative (Negative); IDNOW Serial# 9DB6401D
[2022-03-06 17:18] LABS: Partial Thromboplastin Time 32.2 SEC (26.0-36.4)
[2022-03-06 17:27] LABS: Alanine Aminotransferase 16 U/L (0-31); Albumin Level 3.4 g/dL (3.5-5.0); Alkaline Phosphatase 130 U/L (39-117); Anion Gap 14 (12-20); Aspartate Amino Transferase 13 U/L (5-31); Bilirubin Direct 0.2 mg/dL (0.0-0.5); Bilirubin Total 0.4 mg/dL (0.0-1.0); Blood Urea Nitrogen 10 mg/dL (9-16); Calcium 8.8 mg/dL (8.4-10.2); Carbon Dioxide 26 mmol/L (22-29); Chloride 96 mmol/L (96-108); Creatinine Clr Calc Pharmacy 122.2; Estimated Glomerular Filt Rate > 60; Glucose Random 397 mg/dL (60-115); Lipase 14 U/L (8-78); Magnesium 2.1 mg/dL (1.6-2.6); Sodium 132 mmol/L (135-145); Total Protein 6.4 g/dL (6.5-8.0)
[2022-03-06 17:29] LABS: B Type Natriuretic Peptide 17 pg/mL (<100); Troponin-I High Sensitivity < 3.5 ng/L (<3.5-17.0)
[2022-03-06] MEDS: 0.9 % Sodium Chloride 1,000 ML 999 ML IVCONT (17:35)
[2022-03-06 18:00] VITALS: BP 105/60; PULSE 111; RESP 20; TEMP 36.9; O2SAT 95
[2022-03-06 18:31] LABS: Appearance Urine Clear; Color Urine Yellow; Glucose Urine UA >=1000 mg/dL (Negative); Leukocyte Esterase Urine Negative (Negative); Nitrite Urine Negative (Negative); PH 5.5 (5.0-8.0); Specific Gravity - Urine >= 1.030 (1.005-1.025); Urine Blood Trace (Negative); Urine Ketones Negative (Negative); Urine Protein Negative (Neg-Trace)
[2022-03-06 18:32] LABS: VBG Base Excess 1.9 mmol/L; VBG HCO3 25 mmol/L (22-26); VBG pCO2 35 mmHg; VBG pH 7.45 (7.32-7.43); VBG pO2 223 mmHg
[2022-03-06 18:36] LABS: Venous Blood Gas Refer to POC result
[2022-03-06 18:40] LABS: Acetone, serum QL Negative (Negative); Lactic Acid 1.6 mmol/L (0.5-2.0)
[2022-03-06 19:02] LABS: Bacteria Urine None Seen (None Seen); Hyaline Casts Urine 0-2 /LPF (0-2); RBC Urine 0-2 /HPF (0-2); Squamous Epithelial Cell Urine 0-2 /HPF (0-2); WBC Urine 0-5 /HPF (0-5)
[2022-03-06] MEDS: Insulin Lispro 100 UNIT/ML 3 ML VIAL 10 UNIT SUBCUT (19:30)
== END 2022-03-06 19:48 | disposition home or self-care (01) ==
PROVIDERS: Nurse Practitioner Family; Emergency Provider Internal Medicine
DX: J40 Bronchitis, not specified as acute or chronic (principal); F41.9 Anxiety disorder, unspecified; R60.0 Localized edema; R00.0 Tachycardia, unspecified; R06.02 Shortness of breath; Z20.822 Contact with and (suspected) exposure to COVID-19; E11.9 Type 2 diabetes mellitus without complications; F11.20 Opioid dependence, uncomplicated; F17.200 Nicotine dependence, unspecified, uncomplicated
CPT/HCPCS: 36415; 71045; 80048; 80076; 81001; 82009; 82803; 82947; 83605; 83690; 83735; 83880; 84484; 85025; 85610; 85730; 87040; 87635; 93005; 96360; 99284; 99285

== ENCOUNTER 2023-04-17 11:18 | Outpatient (REF) | payer OTHER, SELFPAY ==
[2023-04-17 13:51] LABS: Alanine Aminotransferase 12 U/L (0-31); Albumin Level 3.9 g/dL (3.5-5.0); Alkaline Phosphatase 113 U/L (39-117); Anion Gap 13 (12-20); Aspartate Amino Transferase 16 U/L (5-31); Bilirubin Direct 0.2 mg/dL (0.0-0.5); Bilirubin Total 0.4 mg/dL (0.0-1.0); Blood Urea Nitrogen 9 mg/dL (9-16); Calcium 9.2 mg/dL (8.4-10.2); Carbon Dioxide 28 mmol/L (22-29); Chloride 103 mmol/L (96-108); Cholesterol 160 mg/dL (<200); Estimated Glomerular Filt Rate > 60; Glucose Random 149 mg/dL (60-115); HDL Cholesterol 36 mg/dL (>40); LDL Cholesterol Calculated 106 mg/dL (<100); Potassium 3.9 mmol/L (3.3-5.1); Sodium 140 mmol/L (135-145); Total Protein 7.5 g/dL (6.5-8.0); Triglycerides 90 mg/dL (<150)
== END 2023-04-17 11:19 | disposition home or self-care (01) ==
LOC: HO.HHCL 11:18
PROVIDERS: Visit Provider Family Medicine
DX: E11.65 Type 2 diabetes mellitus with hyperglycemia (principal); I10 Essential (primary) hypertension; Z79.4 Long term (current) use of insulin
CPT/HCPCS: 36415; 80048; 80061; 80076

== ENCOUNTER 2023-04-19 | Outpatient (REF) | payer OTHER, SELFPAY ==
[2023-04-20 13:11] LABS: Creatinine Urine 241.23 mg/dL; Microalbum/Creatinine Ratio Ur 12.4 ug/mg cr (<30)
== END 2023-04-19 00:01 | disposition home or self-care (01) ==
LOC: HO.HHCLNP
PROVIDERS: Visit Provider Family Medicine
DX: E11.65 Type 2 diabetes mellitus with hyperglycemia (principal)
CPT/HCPCS: 82043; 82570

== ENCOUNTER 2023-10-02 17:01 | Outpatient (REF) | payer OTHER, SELFPAY ==
[2023-10-02 17:42] LABS: Appearance Urine Clear; Color Urine Yellow; Glucose Urine UA Negative (Negative); Leukocyte Esterase Urine Negative (Negative); Nitrite Urine Negative (Negative); UMIC TRIGGER UACC YES; Urine Blood Moderate (2+) (Negative); Urine Ketones Negative (Negative); Urine Protein Negative (Neg-Trace)
[2023-10-02 17:51] LABS: Bacteria Urine None Seen (None Seen); Hyaline Casts Urine 0-2 /LPF (0-2); WBC Urine 0-5 /HPF (0-5)
== END 2023-10-02 17:02 | disposition home or self-care (01) ==
LOC: HO.HHCLNP 17:01
PROVIDERS: Visit Provider Internal Medicine
DX: R31.29 Other microscopic hematuria (principal)
CPT/HCPCS: 81001

== ENCOUNTER 2023-11-17 12:26 | Emergency (ER) | payer OTHER, SELFPAY ==
[2023-11-17] VITALS (7 sets, daily range): BP systolic 0–128; BP diastolic 0–70; PULSE 80–89; RESP 11–18; TEMP 36.8–37.3; O2SAT 91–96; BMI 45.6
--- NOTE | ~2023-11-17 | XR_ITS ---
EXAMINATION: XR CHEST CLINICAL INFORMATION: Shortness of breath COMPARISON: Chest radiograph 03/06/2022. TECHNIQUE: Frontal view of the chest was obtained. FINDINGS: Slightly low lung volumes with otherwise clear lungs. No pleural effusion or pneumothorax. Cardiomediastinal silhouette is unchanged. XR/XR chest 1V IMPRESSION: No acute cardiopulmonary abnormality.
--- NOTE | 2023-11-17 12:37 | ECG_ITS ---
Test Reason : SOB Blood Pressure : / mmHG Vent. Rate : 073 BPM Atrial Rate : 073 BPM P-R Int : 150 ms QRS Dur : 086 ms QT Int : 396 ms P-R-T Axes : 049 072 067 degrees QTc Int : 436 ms Normal sinus rhythm Normal ECG When compared with ECG of 06-MAR-2022 16:23, Vent. rate has decreased BY 38 BPM Nonspecific T wave abnormality no longer evident in Inferior leads Referred By: Cristina Pinedo Electronically Signed By:Boogie Wilson
--- NOTE | 2023-11-17 12:45 | ED_ITS ---
HPI - SOB/Dyspnea General Chief Complaint: Upper Respiratory Symptoms Stated Complaint: DIFF BREATHING COUGH Time Seen by Provider: 11/17/23 12:37 Source: patient Mode of arrival: ambulatory History of Present Illness HPI Narrative: 48-year-old female, everyday smoker, does not carry via dedicated COPD diagnosis but states that she has had increased shortness of breath with productive cough of green sputum and cough associated chest pain. Related Data Previous Rx's ?Medication ?Instructions ?Recorded doxycycline hyclate 100 mg capsule 100 mg PO BID cough 7 days #14 caps 12/18/20 furosemide 20 mg tablet (Lasix) 10 mg (1/2 x 20 mg) PO QAM #14 tabs 12/18/20 furosemide 20 mg tablet (Lasix) 20 mg PO QAM edema 2 weeks #14 tabs 01/04/21 unrpyjtnyf-evpgjymzpivgd-dunkjuyr 1 tab PO Q6H PRN pain #20 tabs 02/18/21 50 mg-325 mg-40 mg tablet lidocaine 4 % topical patch 1 patch topical DAILY PRN pain #10 02/18/21 ea methocarbamol 750 mg tablet 750 mg PO BID PRN muscle spasm #20 02/18/21 tabs acetaminophen 500 mg tablet 1,000 mg (2 x 500 mg) PO QID PRN 04/19/21 (Tylenol Extra Strength) fever or pain #14 tabs cephalexin 500 mg capsule 500 mg PO Q6H 10 days #40 caps 04/19/21 doxycycline monohydrate 100 mg 100 mg PO BID 10 days #20 caps 04/19/21 capsule doxycycline monohydrate 100 mg 100 mg PO BID 10 days #20 caps 03/06/22 capsule amoxicillin 875 mg-potassium 1 tab PO BID 7 days #14 tabs 11/17/23 clavulanate 125 mg tablet prednisone 50 mg tablet 50 mg PO DAILY 4 days #4 tabs 11/17/23 Allergies Allergy/AdvReac Type Severity Reaction Status Date / Time naproxen [NAPROXEN] Allergy Intermediate HIVES Verified 11/17/23 12:48 tramadol [From ULTRAM] Allergy Intermediate HIVES Verified 11/17/23 12:48 Review of Systems 2 Review of Systems: Pertinent positives and negatives as stated in HPI PMFSH Past Medical History Source: nursing notes reviewed Medical History Asthma Panic attacks Diabetes Edema Social History Social History Patient Tobacco Use Status: Current everyday Tobacco user Smoked in Last 30 Days: Yes Use of substances other than those prescribed or required for medical reasons: No Substance Use Type: Former Substance User Advance Directives: No Advance Directives Information Provided: No Do you have a plan to hurt others: No Plan Physical Exam 2 Vital Signs: Vital Signs: Last Vital Signs Temp 98.7 F 11/17/23 14:00 Pulse 89 11/17/23 15:14 Resp 16 11/17/23 14:00 BP 116/50 L 11/17/23 14:00 Pulse Ox 91 L 11/17/23 15:14 O2 Del Method Room Air 11/17/23 15:14 O2 Flow Rate 2 11/17/23 14:00 BMI result Body Mass Index 45.6 VITAL SIGNS: Reviewed. GENERAL: Well developed, well nourished, in no acute distress. HEAD: Normocephalic/atraumatic EYES: PERRLA, EOMI EARS: Ext canals without abnormality NOSE: Nares patent bilateral OROPHARYNX: no oral lesions noted, posterior pharynx clear NECK: Supple, no adenopathy LUNGS: Good inspiratory effort, scattered coarse rhonchi SpO2<91> CARDIOVASCULAR: Regular rate and rhythm without noted murmurs, no JVD or lower extremity edema. ABDOMEN: Soft, non-tender, non-distended with bowel sounds. MUSCULOSKELETAL: No tenderness, deformities, or effusions noted on gross inspection. EXTREMITIES: No cyanosis, clubbing or edema. SKIN: Inspection of the skin reveals no rashes NEUROLOGIC: Alert and oriented x 4. Strength and sensation to light touch were grossly intact x 4. Medications Administered Discontinued Medications Generic Name Dose Route Start Last Admin Trade Name Freq PRN Reason Stop Dose Admin Albuterol Sulfate 2.5 mg/ 0 mg 11/17/23 13:40 11/17/23 13:44 Albuterol/Ipratropium 3 ml INHALE 11/17/23 13:41 5 dose ONCE ONE Administration Methylprednisolone Sodium Succinate 125 mg 11/17/23 13:30 11/17/23 15:13 Methylprednisolone Sod Succ 125 Mg/2 Ml Vial IVPUSH 11/17/23 13:31 125 mg ONCE ONE Administration Medical Decision Making Medical Decision Making MDM Narrative: 48-year-old female with history and clinical presentation, DDX: Chronic lung disease, viral illness, bronchitis, possible pneumonia I reviewed all investigations and hematologic indices are negative for leukocytosis, anemia, thrombocytopenia. VBG does not demonstrate respiratory acidosis but it does demonstrate hypercapnia further supporting the likelihood of chronic obstructive pulmonary disease. Chemistry indices are negative for STARR/electrolyte/liver enzyme derangements, BNP is undetectable. Viral testing is negative for influenza/RSV/COVID-19. Chest x-ray does not demonstrate venous congestion or infiltrate. My interpretation is that patient has bronchitis, there is no evidence for pneumonia or CHF. Patient received antibiotics here in the emergency room and be discharged on remaining course as well as a short course of steroids. Ambulation with oximetry-97% Differential Diagnosis Differential Diagnoses: The differential diagnosis associated with the presentation includes Please see the discussion above Admission/Observation Consideration of admission/observation: Escalation of care including admission/observation considered Please see the discussion above Lab Data MDM Lab Attestation statement: I reviewed the patient's lab results. Please see the discussion above 11/17/23 13:10 11/17/23 13:10 Labs: Lab Results 11/17/23 11/17/23 Range/Units 13:10 13:16 WBC 9.5 (4.8-10.8) X10*3/uL RBC 4.96 (4.20-5.50) X10*6/uL Hgb 14.1 (12.0-16.0) g/dl Hct 42.3 (37.0-47.0) % MCV 85.3 (80.0-98.0) fL MCH 28.4 (27.0-33.0) pg MCHC 33.3 (31.0-35.0) g/dl RDW 14.9 (11.0-16.0) % Plt Count 209 D (160-400) X10*3/uL MPV 8.9 L (9.4-12.3) fL Immature Gran % (Auto) 0.3 (0.0-0.4) % Neut % (Auto) 77.0 H (45-73) % Lymph % (Auto) 15.5 L (20-40) % Thayer % (Auto) 6.5 (2-11) % Eos % (Auto) 0.6 (0-4) % Baso % (Auto) 0.1 (0-2) % Lymph # (Auto) 1.5 (1.2-4.9) X10*3/uL Thayer # (Auto) 0.6 (0.1-1.2) X10*3/uL Eos # (Auto) 0.1 (0.0-0.4) X10*3/uL Baso # (Auto) 0.0 (0.0-0.2) X10*3/uL Abs Immat Gran (auto) 0.03 (0.00-0.03) X10*3/uL Absolute Neuts (auto) 7.3 (2.0-8.3) x10*3/uL Absolute Nucleated RBC 0.000 (0.0-0.012) X10*3/uL Nucleated RBC % (auto) 0.0 (0.0-0.2) /100WBC VBG pH 7.37 (7.32-7.43) VBG pCO2 50 mmHg VBG pO2 39 mmHg VBG HCO3 29 H (22-26) mmol/L VBG O2 Saturation 61.0 % VBG Base Excess 3.2 mmol/L Sodium 136 (135-145) mmol/L Potassium 3.8 (3.3-5.1) mmol/L Chloride 101 (96-108) mmol/L Carbon Dioxide 25 (22-29) mmol/L Anion Gap 14 (12-20) BUN 10 (9-16) mg/dL Creatinine 0.74 (0.5-1.4) mg/dL Estim Creat Clear Calc 121.5 Estimated GFR > 60 Random Glucose 152 H (60-115) mg/dL Lactic Acid 1.1 (0.5-2.0) mmol/L Calcium 8.8 (8.4-10.2) mg/dL Total Bilirubin 0.3 (0.0-1.0) mg/dL AST 10 (5-31) U/L ALT 12 (0-31) U/L Alkaline Phosphatase 94 (39-117) U/L B-Natriuretic Peptide < 10 (<100) pg/mL Total Protein 7.2 (6.5-8.0) g/dL Albumin 3.5 (3.5-5.0) g/dL Influenza Type A (PCR) NEGATIVE (Negative) Influenza Type B (PCR) NEGATIVE (Negative) RSV RNA Qual (PCR) NEGATIVE (Negative) SARS-CoV-2 RNA (RT-PCR) NEGATIVE (Negative) Independent Interpretation I performed an independent interpretation of an: EKG Interpretation: Normal sinus rhythm, HR-73, no STEMI, DC/QRS/QTC is within normal limits. Radiology Impression Discussion of test interpretation with radiology: I have reviewed the radiologist's reading. Radiologist Impression: Please see the discussion above External Record Review External record reviewed: Outpatient record, Prior outpatient labs and Prior outpatient radiology Chronic Conditions Patient?s care impacted by: Hypertension Critical Care Time Critical Care Time Critical Care Time: Yes Total Critical Care Time: 45 Attestation: I personally attest to this time spent taking care of the patient. Discharge Plan Discharge Clinical Impression: Bronchitis Patient Disposition: Home, Self-Care Instructions: Acute Bronchitis (ED) Additional Instructions: 1. Complete the entire course of antibiotics as prescribed. You will also receive a short course of steroids. 2. Follow-up with primary care doctor on Sunday morning. Return to the ER for any worsening symptoms. Prescriptions: New prednisone 50 mg tablet 50 mg PO DAILY 4 Days Qty: 4 0RF amoxicillin-pot clavulanate 875-125 mg tablet 1 tab PO BID 7 Days Qty: 14 0RF No Action furosemide [Lasix] 20 mg tablet 10 mg PO QAM Qty: 14 0RF doxycycline hyclate 100 mg capsule 100 mg PO BID 7 Days Qty: 14 0RF furosemide [Lasix] 20 mg tablet 20 mg PO QAM 14 Days Qty: 14 0RF lidocaine 4 % adhesive patch,medicated 1 patch topical DAILY PRN (Reason: pain) Qty: 10 0RF Rx Instructions: may leave on for up to 12 hrs tkwizkcjxf-ppmnghfqbldld-gfgr 50-325-40 mg tablet 1 tab PO Q6H PRN (Reason: pain) Qty: 20 0RF methocarbamol 750 mg tablet 750 mg PO BID PRN (Reason: muscle spasm) Qty: 20 0RF doxycycline monohydrate 100 mg capsule 100 mg PO BID 10 Days Qty: 20 0RF acetaminophen [Tylenol Extra Strength] 500 mg tablet 1,000 mg PO QID PRN (Reason: fever or pain) Qty: 14 0RF doxycycline monohydrate 100 mg capsule 100 mg PO BID 10 Days Qty: 20 0RF cephalexin 500 mg capsule 500 mg PO Q6H 10 Days Qty: 40 0RF Referrals: Flor Victor MD [Primary Care Provider] - Print Language: Croatian
[2023-11-17 13:16] LABS: MANUAL DIFF FLAG NO
[2023-11-17 13:18] LABS: Basophils Percent Auto 0.1 % (0-2); Eosinophils Absolute Auto 0.1 X10*3/uL (0.0-0.4); Eosinophils Percent Auto 0.6 % (0-4); Hematocrit 42.3 % (37.0-47.0); Hemoglobin 14.1 g/dl (12.0-16.0); Imm Gran Abs Auto 0.03 X10*3/uL (0.00-0.03); Imm Gran Pct Auto 0.3 % (0.0-0.4); Lymphocytes Absolute Auto 1.5 X10*3/uL (1.2-4.9); Lymphocytes Percent Auto 15.5 % (20-40); Mean Corpuscular HGB Conc 33.3 g/dl (31.0-35.0); Mean Corpuscular Hemoglobin 28.4 pg (27.0-33.0); Mean Corpuscular Volume 85.3 fL (80.0-98.0); Mean Platelet Volume 8.9 fL (9.4-12.3); Monocytes Absolute Auto 0.6 X10*3/uL (0.1-1.2); Monocytes Percent Auto 6.5 % (2-11); Neutrophils Absolute Auto 7.3 x10*3/uL (2.0-8.3); Platelet Count 209 X10*3/uL (160-400); Red Blood Count 4.96 X10*6/uL (4.20-5.50); Red Cell Distribution Width 14.9 % (11.0-16.0); White Blood Count 9.5 X10*3/uL (4.8-10.8)
[2023-11-17 13:22] LABS: VBG Base Excess 3.2 mmol/L; VBG HCO3 29 mmol/L (22-26); VBG pCO2 50 mmHg; VBG pH 7.37 (7.32-7.43); VBG pO2 39 mmHg
[2023-11-17 13:24] LABS: Venous Blood Gas Refer to POC result
[2023-11-17 13:33] LABS: Lactic Acid 1.1 mmol/L (0.5-2.0)
--- NOTE | 2023-11-17 13:35 | PC.NURSE ---
oxygen noted to be 86% on room air, placed on 2.5L nasal cannula at this time now 95%. labs obtained and sent.
[2023-11-17 13:36] LABS: Alanine Aminotransferase 12 U/L (0-31); Albumin Level 3.5 g/dL (3.5-5.0); Alkaline Phosphatase 94 U/L (39-117); Anion Gap 14 (12-20); Aspartate Amino Transferase 10 U/L (5-31); Bilirubin Total 0.3 mg/dL (0.0-1.0); Blood Urea Nitrogen 10 mg/dL (9-16); Calcium 8.8 mg/dL (8.4-10.2); Carbon Dioxide 25 mmol/L (22-29); Chloride 101 mmol/L (96-108); Creatinine Clr Calc Pharmacy 121.5; Estimated Glomerular Filt Rate > 60; Glucose Random 152 mg/dL (60-115); Potassium 3.8 mmol/L (3.3-5.1); Sodium 136 mmol/L (135-145); Total Protein 7.2 g/dL (6.5-8.0)
[2023-11-17] MEDS: Albuterol Sulfate 2.5 MG, Albuterol/Iprat 2.5/0.5MG 3 ML 3 ML INHALE (13:44)
[2023-11-17 13:46] LABS: B Type Natriuretic Peptide < 10 pg/mL (<100)
[2023-11-17 14:12] LABS: Influenza A PCR NEGATIVE (Negative); Influenza B PCR NEGATIVE (Negative); Resp Syncy Virus RNA Qual PCR NEGATIVE (Negative); SARS COV2 PCR INHOUSE NEGATIVE (Negative)
[2023-11-17] MEDS: methylPREDNISolone Sod Succ 125 MG/2 ML VIAL IVPUSH (15:13)
[2023-11-17] MEDS: Amoxicillin/Potassium Clav 875 MG TABLET PO (16:19)
== END 2023-11-17 16:20 | disposition home or self-care (01) ==
PROVIDERS: Emergency Provider Student in an Organized Health Care Education/Training Program; PCP Family Medicine
DX: J40 Bronchitis, not specified as acute or chronic (principal); R06.02 Shortness of breath; R05.9 Cough, unspecified; R07.9 Chest pain, unspecified; E11.9 Type 2 diabetes mellitus without complications
CPT/HCPCS: 0241U; 36415; 71045; 80053; 82803; 83605; 83880; 85025; 87040; 93005; 94640; 96374; 99284; 99285; J2919

== ENCOUNTER → 2023-11-17 12:37 | Outpatient (BNV) | payer OTHER, SELFPAY | PROVIDERS: Emergency Provider Student in an Organized Health Care Education/Training Program; PCP Family Medicine; Visit Provider Internal Medicine Cardiovascular Disease | DX: R06.02 Shortness of breath (principal) | CPT/HCPCS: 93010 ==

== ENCOUNTER 2024-01-28 17:39 | Emergency (ER) | payer OTHER, SELFPAY ==
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
--- NOTE | ~2024-01-28 | XR_ITS ---
EXAMINATION: XR TIBIA AND FIBULA, RIGHT CLINICAL INFORMATION: Medial malleolus fracture COMPARISON: Ankle radiograph 01/28/2024 and ankle radiograph 06/22/2017 TECHNIQUE: AP and lateral views of the right tibia and fibula were obtained. FINDINGS: Redemonstrated medial malleolus fracture. An obliquely shape. No proximal tibia or fibular fracture. Degenerative changes of the knee present. An obliquely shaped lucency also seen projecting over the fibula extending into the tibiotalar joint. This results in abnormal widening of the ankle mortise. Mild bimalleolar soft tissue swelling. No radiopaque foreign bodies. XR/XR tibia fibula RT 2V IMPRESSION: 1. Chronic medial malleolus fracture. 2. Likely oblique fracture of the distal lateral tibia at the tibiofibular joint, also favored to be chronic. If clinically indicated, recommend further evaluation with CT lower extremity.
[2024-01-28 17:52] VITALS: BP 123/69; BP 142/86; PULSE 78; PULSE 84; RESP 16; TEMP 36.8; O2SAT 96; BMI 43.3
[2024-01-28 18:00] VITALS: BP 147/85; PULSE 78; RESP 14; TEMP 36.9; O2SAT 91
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
[2024-01-28] MEDS: Morphine Sulfate Immed Release 15 MG TABLET PO (18:51)
[2024-01-28] MEDS: Ondansetron ODT 4 MG TAB.RAPDIS TRANSLINGU (18:51)
[2024-01-28 20:57] LABS: Amphetamine Screen Urine Not Detected (Not Detect); Barbiturates, Urine Not Detected (Not Detect); Benzodiazepines Screen Urine Not Detected (Not Detect); Buprenorphine Scr Positive (Not Detect); Cannabinoid Screen Urine Not Detected (Not Detect); Cocaine Screen Urine POSITIVE (Not Detect); Fentanyl, urine Not Detected (Not Detect); Methadone Screen, Urine Not Detected (Not Detect); Opiate Screen Urine POSITIVE (Not Detect); Oxycodone Screen Urine Not Detected (Not Detect); Phencyclidine Screen Urine Not Detected (Not Detect)
--- NOTE | 2024-01-28 21:05 | MHC.EDTECH ---
pt asked for food, given 2 sandwiches and kylah chico.
[2024-01-28 22:00] VITALS: BP 160/74; PULSE 61; RESP 19; TEMP 37; O2SAT 95
[2024-01-28 23:14] VITALS: BP 160/74; PULSE 61; RESP 19; TEMP 37; O2SAT 95
== END 2024-01-28 23:15 | disposition home or self-care (01) ==
PROVIDERS: Nurse Practitioner Family; Emergency Provider Internal Medicine; PCP Family Medicine
DX: S82.51XA Displaced fracture of medial malleolus of right tibia, initial encounter for closed fracture (principal); R51.9 Headache, unspecified; M54.2 Cervicalgia; R10.2 Pelvic and perineal pain; M25.571 Pain in right ankle and joints of right foot; M25.50 Pain in unspecified joint; V03.90XA Pedestrian on foot injured in collision with car, pick-up truck or van, unspecified whether traffic or nontraffic accident, initial encounter; Y93.01 Activity, walking, marching and hiking; Y92.488 Other paved roadways as the place of occurrence of the external cause; Y99.8 Other external cause status; F17.200 Nicotine dependence, unspecified, uncomplicated; Z79.899 Other long term (current) drug therapy
CPT/HCPCS: 29515; 70450; 72125; 73590; 73610; 74176; 80307; 99284

== ENCOUNTER 2024-01-31 09:45 | Outpatient (REF) | payer OTHER, SELFPAY ==
--- NOTE | ~2024-01-31 | XR_ITS ---
EXAMINATION: XR ANKLE, RIGHT CLINICAL INFORMATION: Right foot pain. COMPARISON: 01/28/2024 and 06/22/2017. TECHNIQUE: AP, lateral, and mortise views of the right ankle. FINDINGS: Again seen is a chronically avulsed osseous fragment at the medial malleolus. Moderate size marginal osteophytes are present at the talocrural joint with mild varus angulation, similar to prior. Osseous hypertrophy is noted at the distal tibiofibular syndesmosis, consistent with a prior syndesmotic injury. No acute fractures are identified. Nonuniformity of the talocrural joint space may be due to chronic cartilage loss and is similar to prior. No appreciable joint effusion. Osseous fragments at the posterior aspect of the talus may correspond to intra-articular loose bodies or old displaced fractures. Minimal arthrosis at the subtalar joint. Prominent osteophytes are present at the talonavicular and calcaneocuboid joint. Iffo-[id number] multifocal osteoarthritis is present in the midfoot. Soft tissues are swollen at the right ankle. Large enthesopathic spurs are present at the Achilles tendon insertion and plantar fascial origin on the calcaneus. XR/XR ankle RT min 3V IMPRESSION: 1. No acute fracture or malalignment at the right ankle. 2. 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 3. 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 4. Chronically avulsed osseous fragment at the medial malleolus dating back to 2016.
== END 2024-01-31 09:46 | disposition home or self-care (01) ==
LOC: HO.HOSX 09:45
PROVIDERS: Visit Provider Physician Assistant
DX: M25.571 Pain in right ankle and joints of right foot (principal); S93.401A Sprain of unspecified ligament of right ankle, initial encounter
CPT/HCPCS: 73610; 99202

== ENCOUNTER 2024-01-31 10:20 | Outpatient (AMB) | payer OTHER, SELFPAY ==
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
[2024-01-31 10:45] VITALS: BMI 43.3
== END 2024-01-31 11:21 | disposition home or self-care (01) ==
PROVIDERS: PCP Family Medicine; Visit Provider Physician Assistant
DX: S93.401A Sprain of unspecified ligament of right ankle, initial encounter (principal)
CPT/HCPCS: 99203

== ENCOUNTER 2024-03-20 12:59 | Outpatient (REF) | payer OTHER, SELFPAY ==
--- NOTE | ~2024-03-20 | XR_ITS ---
EXAMINATION: XR ANKLE, RIGHT CLINICAL INFORMATION: Pain in ankle. COMPARISON: Multiple prior radiographs of the right ankle most recent January 2024 and dating back to June 2017. TECHNIQUE: AP, lateral, and mortise views of the right ankle. FINDINGS: Talocrural joint: Persistent prominent ossicle versus ununited medial malleolar fracture fragment. There is also mild marginal osteophytes indicative of at least mild arthrosis. Persistent ossific densities last fragment distal to the fibula adjacent to the talonavicular joint on the frontal projection unchanged compared to prior examinations. Likely reflects ossicle or old ununited fracture. Persistent osteoarthritis in the midfoot crossing the talonavicular joints and naviculocuneiform joints unchanged. Small plantar calcaneal spur unchanged. Mild generalized soft tissue swelling circumferentially about the ankle. XR/XR ankle RT min 3V IMPRESSION: 1. Mild osteoarthritis of the talocrural joint. 2. Mild osteoarthritis of the midfoot. 3. Ossific fragment seen on the AP projection along the lateral aspect of the hindfoot distal to the fibula of uncertain etiology and significance. Suspect ossicle or ununited old fracture fragment. 4. No change compared with prior examinations. Electronically signed by: Mayank Fu MD 04/17/2024 07:08 AM EDT RP
== END 2024-03-20 13:00 | disposition home or self-care (01) ==
LOC: HO.HOSX 12:59
PROVIDERS: PCP Family Medicine; Visit Provider Physician Assistant
DX: M25.571 Pain in right ankle and joints of right foot (principal); S93.401A Sprain of unspecified ligament of right ankle, initial encounter
CPT/HCPCS: 73610; 99212

== ENCOUNTER 2024-03-20 13:36 | Outpatient (AMB) | payer OTHER, SELFPAY ==
--- NOTE | 2024-03-20 13:41 | MHC.OFFVIS ---
Intake Visit Reasons: OV - right ankle sprain, DOI 01/28/24 Intake Note: Sherin is a 49 year old female who presents today for a evaluation of her right ankle fx, DOI 01/28/24. Patient reports she still has numbness in her whole foot and toes. She mentions that she is about to moves her toes. Allergies naproxen [NAPROXEN] Allergy (Intermediate, Verified 03/20/24 13:47) HIVES tramadol [From ULTRAM] Allergy (Intermediate, Verified 03/20/24 13:47) HIVES HPI HPI OV - right ankle sprain, DOI 01/28/24: Details: 49-year-old female who presents in the office today for a follow-up of a right ankle sprain. I last saw the patient in the office on 01/31/24 when she was placed in a tall walking boot and encouraged to weight bear as tolerated. She was also referred to physical therapy. ? ? While in the office today, the patient reports continued numbness in her entire right foot and toes. She confirms she can move her toes. ? [facility] Medical History Asthma Panic attacks Diabetes Edema Social History Alcohol intake: never Patient Tobacco Use Status: Current everyday Tobacco user Cigarette Packs Per Day: 0.5 Substance Use Type: Former Substance User Current occupational status: disabled Review of Systems Const All systems reviewed & are unremarkable except as noted in HPI and below Physical Exam Const General: cooperative, healthy appearing and no acute distress Resp Effort & Inspection: normal respiratory effort and able to speak in complete sentences Cardio Rate: regular rate Peripheral pulses: Peripheral pulses 2+ throughout GI Palpation (GI): Soft to palpation Skin Lesions: no lesions Rashes: no rashes Extrem Other: Right ankle: Mild to moderate circumferential edema. Tenderness to palpation over the medial and lateral malleolus. Able to perform full dorsiflexion and plantarflexion but she has pain. Slightly able to perform internal pronation and supination with stiffness and pain. Reports intermittent numbness and tingling. Pedal pulse intact. Capillary refill is brisk. ? Assessment & Plan Assessment & Plan (1) Moderate right ankle sprain: Code(s): S93.401A - Sprain of unspecified ligament of right ankle, initial encounter Category: Medical Plan Ms. Mac is a 49-year-old female who presents in the office today for a follow-up of a right ankle sprain. I last saw the patient in the office on 01/31/24 when she was placed in a tall walking boot and encouraged to weight bear as tolerated. She was also referred to physical therapy. ? ? While in the office today, the patient reports continued numbness in her entire right foot and toes. She confirms she can move her toes.? ? The patient is attending physical therapy and feels as though she has not been progressing. She also continues to wear the boot and has pain with ambulation. Therefore, I have ordered an MRI to further evaluate the integrity of the right ankle. She will continue to wear the boot and attend physical therapy in the meantime. She will contact the office once the MRI is obtained. Follow-up will be after the MRI is obtained, or sooner if needed. ? ? X-rays of the right ankle which were obtained while in the office today and were reviewed by me, Josefina Sebastian PA-C, revealed no acute fracture or dislocation. Redemonstration of significant arthritic changes. Chronic medial malleolar avulsion. ? Orders: Orders XR ankle RT min 3V Today M25.579 - Pain in unspecified ankle and joints of unspecified foot MR ankle RT wo con Today S93.401A - Sprain of unspecified ligament of right ankle, initial encounter Patient Instructions: Scribed by Natasha Talbot medical editor, for Josefina Sebastian PA-C on 03/20/2024 at 1:54 pm, EST.? Coding Level of Care Code Est Pt Level 3 (08400) Complex EM visit Add On G2211 Diagnoses Moderate right ankle sprain S93.401A
== END 2024-03-20 14:34 | disposition home or self-care (01) ==
LOC: HO.HOS 13:36
PROVIDERS: PCP Family Medicine; Visit Provider Physician Assistant
DX: S93.401A Sprain of unspecified ligament of right ankle, initial encounter (principal)
CPT/HCPCS: 99213; G2211

== ENCOUNTER 2024-05-20 13:13 | Outpatient (REF) | payer OTHER, SELFPAY ==
--- NOTE | ~2024-05-20 | MR_ITS ---
EXAMINATION: MR ANKLE WITHOUT CONTRAST, RIGHT CLINICAL INFORMATION: Right ankle pain and numbness within the toes. Pain and swelling. Injury in January 2024. COMPARISON: Most recent right ankle radiograph dated 03/20/2024. TECHNIQUE: MRI of the ankle was performed using routine sequences on a high-field scanner. FINDINGS: BONE AND ARTICULAR CARTILAGE: Along the anterior aspect of the medial malleolus, there is a corticated ossification measuring up to 2 cm in AP dimension with mild marrow edema as well as adjacent soft tissue edema, consistent with a chronic, unfused avulsion fracture. Degenerative cystic change within the fracture fragment as well as the adjacent medial malleolus and medial talar body. This involves the anterior aspect of the deltoid ligament. Irregular bony spurring at the lateral malleolus, consistent with a remote avulsion injury. Focal articular cartilage signal heterogeneity with fissuring and minimal subchondral cystic change at the lateral aspect of the talar dome. Small tibiotalar marginal osteophytes. No unstable talar osteochondral lesion. Moderate subtalar, talonavicular, calcaneocuboid, and cuneonavicular osteoarthritis. ACHILLES TENDON: Intact. OTHER TENDONS: Intact. LIGAMENTS: Remote sprain/partial tears of the anterior talofibular, posterior talofibular, calcaneofibular, and deltoid ligaments. JOINT FLUID AND SOFT TISSUES: Circumferential subcutaneous edema. Small tibiotalar and subtalar joint effusions. PLANTAR FASCIA: Intact plantar fascia. Moderate plantar calcaneal spur. SINUS TARSI AND TARSAL TUNNEL: Narrowing of the sinus tarsi with edema which can be seen in the setting of sinus tarsi syndrome. MR/MR ankle RT wo con IMPRESSION: 1. Chronic, unfused avulsion fracture at the anterior aspect of the medial malleolus with degenerative cystic change in the adjacent medial malleolus and medial talar body. This involves the anterior aspect of the deltoid ligament. 2. Remote avulsion injury at the lateral malleolus. 3. Mild tibiotalar osteoarthritis. No unstable talar osteochondral lesion. Moderate subtalar, talonavicular, calcaneocuboid, and cuneonavicular osteoarthritis. 4. Remote sprain/partial tears of the anterior talofibular, posterior talofibular, calcaneofibular, and deltoid ligaments. 5. Small tibiotalar and subtalar joint effusions. Circumferential subcutaneous edema. 6. Edema within the sinus tarsi which can be seen in the setting of sinus tarsi syndrome. Electronically signed by: Javon Menjivar MD 06/02/2024 10:56 AM [facility]
== END 2024-05-20 13:14 | disposition home or self-care (01) ==
LOC: HO.MRI 13:13
PROVIDERS: PCP Family Medicine; Visit Provider Physician Assistant
DX: S93.401A Sprain of unspecified ligament of right ankle, initial encounter (principal)
CPT/HCPCS: 73721

== ENCOUNTER 2024-07-22 14:51 | Outpatient (REF) | payer OTHER, SELFPAY ==
[2024-07-22 16:05] LABS: Appearance Urine Turbid; Color Urine Yellow; Glucose Urine UA >=1000 mg/dL (Negative); Leukocyte Esterase Urine Negative (Negative); Nitrite Urine Negative (Negative); Specific Gravity - Urine >= 1.030 (1.005-1.025); UMIC TRIGGER UACC YES; Urine Blood Moderate (2+) (Negative); Urine Ketones Trace mg/dL (Negative); Urine Protein 30 (1+) mg/dL (Neg-Trace)
[2024-07-22 16:26] LABS: Estimated Average Glucose 151 mg/dL; Hemoglobin A1c % 6.9 % (<6.0); Total Hemoglobin (HGBA1C) 4069.0845 umol/L
[2024-07-22 16:35] LABS: Bacteria Urine None Seen (None Seen); Hyaline Casts Urine 0-2 /LPF (0-2); Squamous Epithelial Cell Urine 0-2 /HPF (0-2); WBC Urine 0-5 /HPF (0-5)
[2024-07-22 17:05] LABS: Creatinine Urine 145.66 mg/dL; Microalbum/Creatinine Ratio Ur 125.6 ug/mg cr (<30)
--- OUTSIDE RECORDS SUMMARY | 2024-07-22 17:20 | XMS_ITS | Continuity of Care Document ---
Author Organization [facility] Address [address] [place] [address] Phone Care Team Providers Care Guardian Family Member Name Role Phone Dejah Vale Unavailable Unavaila ble Advance Directives Directive Yes / No Effective Date File Name No Information Encounters Encounter Description Practice Location Reason(s) For Visit Diagnoses Date Provider Providers Copied on Encounter [facility], [address] [place] [address],[address], [place], [place], [id number], tel:[phone] 2 [facility] No Information 4 Kwasi Diazs . [address] [place], [place], [id number] . tel:[phone] Family History Family Member Type Diagnosis Age At Onset No Information Payers Payer name Insurance type Covered green party ID Authoriza tion(s) No Information Social History Type Description Quantity Date Captured Comments Sex Female Smoking Status No Information Chief Complaint And Reason For Visit No Information Reason For Referral Reason For Referral No Information Plan Of Treatment Date Type Action Status Goal HPV. Due on due Goal Unhealthy drug use screening . Due on due Goal Document SOGI Information. D ue on due Goal Td vaccine. Due on 14 due Goal Pap/HPV testing. Due on due Goal Influenza vaccine. Due on Oc due Goal PAP. Due on due Goal Tdap. Due on due Goal APE. Due on due History Of Present Illness Encounter Date Complaint History Of Prese nt Illness No Information Functional Status Date Functional Assessmen t No Information Instructions Date Instruction Additional Infor mation No Information Assessments Type Assessment Date No Information Patient Care Teams Name Effective Dates (start - stop) Status Members No Information
[2024-07-23 03:58] LABS: Hepatitis A Antibody IgG Nonreactive (Nonreactive); ~Hepatitis A Antibody IgG 0.28 S/CO (0.00-0.99)
[2024-07-23 03:59] LABS: HBS Num1 1.55 mIU/mL (0-7.99); HBc Num1 0.06 S/CO (0.00-0.79); HBsAGNum1 0.31 S/CO (0.00-0.99); HIV AB/AG Nonreactive (Nonreactive); HIV Num 1 0.06 S/CO (0.00-0.99); Hepatitis B Core Antibody Nonreactive (Nonreactive); Hepatitis B Surface Antigen Negative (Negative); ~HepC Num1 0.21 S/CO (0.00-0.79); ~Hepatitis B Surface Antibody NONREACTIVE (Nonreactive); ~Hepatitis C Antibody Nonreactive (Nonreactive)
== END 2024-07-22 14:52 | disposition home or self-care (01) ==
LOC: HO.HHCL 14:51
PROVIDERS: Visit Provider Family Medicine
DX: Z11.3 Encounter for screening for infections with a predominantly sexual mode of transmission (principal); E11.65 Type 2 diabetes mellitus with hyperglycemia; R31.29 Other microscopic hematuria; E11.42 Type 2 diabetes mellitus with diabetic polyneuropathy; Z11.59 Encounter for screening for other viral diseases; Z72.89 Other problems related to lifestyle
CPT/HCPCS: 36415; 81001; 82043; 82570; 83036; 86704; 86706; 86708; 86803; 87340; 87389